=== PATIENT | female | born 1975 | race American Indian/Alaskan Native ===

== ENCOUNTER → 2016-12-23 | Outpatient (CLI) | payer BC, OTHER ==
[2016-12-23] MEDS: Gadobutrol 10 mMOL/10 ML SDV IVPUSH STA (14:42)
--- NOTE | 2016-12-24 10:02 | MR ---
EXAMINATION: MRI of the brain with and without contrast. TECHNIQUE: Multiplanar and multisequence imaging of the brain without and following the administrati on of 8 mL of Gadavist. Mild motion artifact is noted on several sequences. HISTORY: Multiple sclerosis. FINDINGS: Cerebral hemispheres and the deep nuclei are without hemorrhage, mass, edema, gliosis, enhancement o r atrophy. No extraaxial collections or hemorrhage. The ventricular system is of normal size and c onfiguration without hydrocephalus. The brainstem and cerebellum are without hemorrhage, mass, francine a, gliosis, enhancement or atrophy. No abnormal diffusion restriction. Carotid basilar artery flow voids are intact. The otomastoid airspaces are clear. No internal андрей tory canal or cerebellopontine angle masses or enhancement. The paranasal sinuses are clear. Globes, optic nerves, orbital apices, optic chiasm, optic tracts, and visual cortices are unremarka ble. The pituitary and sella turcica are unremarkable No meningeal enhancement. There is approximately 1 cm of cerebellar tonsillar herniation. No side rosis or evidence of vascular malformation. The calvarium is intact. IMPRESSION: 1. No acute intracranial findings. 2. No abnormal white matter findings to suggest multiple sclerosis. 3. 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
== END ==
LOC: MW.MRI 13:48
PROVIDERS: ATTEND Physician Assistant
DX: G35 Multiple sclerosis (principal); G93.5 Compression of brain
CPT/HCPCS: 70553; A9585

== ENCOUNTER → 2017-01-20 | Outpatient (CLI) | payer BC, OTHER ==
[2017-01-20 15:46] LABS: CHLORIDE,CL 110 mmol/L (98-110); SODIUM,NA 138 mmol/L (136-146)
== END | disposition home or self-care (01) ==
LOC: MW.CHNEURO 14:57
PROVIDERS: ATTEND Psychiatry & Neurology Neuromuscular Medicine
DX: R53.83 Other fatigue (principal); M25.50 Pain in unspecified joint; R20.0 Anesthesia of skin; R20.2 Paresthesia of skin
CPT/HCPCS: 36415; 80053; 82550; 85025

== ENCOUNTER 2018-05-18 10:54 | Inpatient (IN) | payer BC, OTHER ==
[2018-05-18] MEDS ORDERED: Ondansetron 4 MG/2 ML SDV IVPUSH ONE (10:56)
[2018-05-18] MEDS ORDERED: Sodium Chloride 0.9% 1,000 ML IV ONE ×2 (10:56→12:31)
[2018-05-18] MEDS ORDERED: Ketorolac 30 MG/ML SDV IVPUSH ONE (11:26)
--- NOTE | 2018-05-18 11:29 | EDM.PDOC ---
ED HPI GENERAL MEDICAL PROBLEM - General Chief Complaint: Abdominal Pain Stated Complaint: COLITIS Time Seen by Provider: 05/18/18 10:56 Source of Information: Reports: Patient History Limitations: Reports: No Limitations - History of Present Illness INITIAL COMMENTS - FREE TEXT/NARRATIVE: HISTORY AND PHYSICAL: History of present illness: Patient is a 42-year-old female who presents to the emergency room with complaints of low abdominal pain, mucousy bloody stools, and nausea. She has a history of colitis and over the past 3 weeks has had progressively worsening of her diarrhea which is now more "mucousy been normal". She denies any fever, chills, chest pain, shortness of breath or cough. Denies any vomiting, constipation, dysuria. Patient sees Dr. Kowalski at [facility] for her primary care provider. Sees a dance hall hostess in [place] for her colitis. Patient has had a total hysterectomy, denies chance of . Review of systems: As per history of present illness and below otherwise all systems reviewed and negative. Past medical history: As per history of present illness and as reviewed below otherwise noncontributory. Surgical history: As per history of present illness and as reviewed below otherwise noncontributory. Social history: No reported history of drug or alcohol abuse. Family history: As per history of present illness and as reviewed below otherwise noncontributory. Physical exam: General: Well-developed and well-nourished 42-year-old female. Alert and oriented. Nontoxic appearing and in no acute distress. HEENT: Atraumatic, normocephalic, pupils equal and reactive bilaterally, negative for conjunctival pallor or scleral icterus, mucous membranes moist, throat clear, neck supple, nontender, trachea midline. No drooling or trismus noted. No meningeal signs Lungs: Clear to auscultation, breath sounds equal bilaterally, chest nontender. Heart: S1S2, regular rate and rhythm without overt murmur Abdomen: Soft, nondistended, generalized tenderness to the low abdomen. Negative for masses or hepatosplenomegaly. Negative for costovertebral tenderness. Pelvis: Stable nontender. Genitourinary: Deferred. Rectal: Deferred. Skin: Intact, warm, dry. No lesions or rashes noted. Extremities: Atraumatic, negative for cords or calf pain. Neurovascular unremarkable. Neuro: Awake, alert, oriented. Cranial nerves II through XII unremarkable. Cerebellum unremarkable. Motor and sensory unremarkable throughout. Exam nonfocal. Notes: But did offer the patient some morphine for 9/10 pain. She states this does cause her to have some itching. She is willing to try Toradol first to manage her discomfort. Vital signs are stable. Lab work results are pending. Patient's pain is 5/10 at this time. I will give her some Benadryl followed by some morphine. WBC is 20.25, CT of the abdomen is pending. Vital Signs are stable. CT shows mild generalized colonic wall thickening which could represent an inflammatory versus infectious colitis. Otherwise no acute findings are demonstrated in the CT. Cultures were obtained. Patient has IV antibiotics running. Dr. Hernandez was consulted on this case at 1300. 1330: Dr Hernandez his agreed to accept this patient for admission. Patient is aware and agreeable. Vital signs remained stable Diagnostics: CBC, CMP, UA, Amylase, Lipase Therapeutics: IV fluids, Toradol, Zofran, Flagyl, Cipro Impression: Infectious Colitis Plan: Admission to [facility] for IV antibiotics per Dr Hernandez Definitive disposition and diagnosis as appropriate pending reevaluation and review of above. 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: Reports: Musculoskeletal History: Reports: None Neurological History: Reports: MS (diagnesed but on no medications, and she is stable.) Psychiatric History: Reports: None Endocrine/Metabolic History: Reports: Obesity/BMI 30+ Hematologic History: Reports: None Immunologic History: Reports: None Oncologic (Cancer) History: Reports: None Dermatologic History: Reports: None - Past Surgical History Female Surgical History: Reports: Breast Biopsy, Breast Implant, Section, Hysterectomy - History Comment History Comment: etoh "occasionally" ED ROS GENERAL - Review of Systems Review Of Systems: ROS reveals no pertinent complaints other than HPI. ED EXAM, GI/ABD - Physical Exam Exam: See Below (See) Course - Vital Signs Last Recorded V/S: Last Vital Signs Temp 97.8 F 05/18/18 12:43 Pulse 76 05/18/18 12:43 Resp 16 05/18/18 12:43 BP 103/58 L 05/18/18 12:43 Pulse Ox 99 05/18/18 12:43 - Orders/Labs/Meds Orders: Active Orders 24 hr Category Date Time Status Admission Status [Patient Status] [ADT] Stat ADT 05/18/18 13:22 Active CULTURE BLOOD [BC] Stat Lab 05/18/18 12:36 Received CULTURE BLOOD [BC] Stat Lab 05/18/18 13:08 Results UA W/MICROSCOPIC [URIN] Stat Lab 05/18/18 11:25 Ordered Sodium Chloride 0.9% [Normal Saline] 1,000 ml Med 05/18/18 12:31 Active IV .Bolus Blood Culture x2 Reflex Set [OM.PC] Stat Oth 05/18/18 12:19 Ordered Medication Orders Sodium Chloride (Normal Saline) 1,000 mls @ 125 mls/hr IV .Bolus ONE Stop: 05/18/18 20:30 Last Admin: 05/18/18 12:37 Dose: 125 mls/hr Labs: Laboratory Tests 05/18/18 05/18/18 05/18/18 Range/Units 11:25 11:31 11:31 WBC 20.25 H (4.0-11.0) K/uL RBC 4.53 (4.30-5.90) M/uL Hgb 13.9 (12.0-16.0) g/dL Hct 41.5 (36.0-46.0) % MCV 91.6 (80.0-98.0) fL MCH 30.7 (27.0-32.0) pg MCHC 33.5 (31.0-37.0) g/dL RDW Std Deviation 43.0 (28.0-62.0) fl RDW Coeff of Antonio 13 (11.0-15.0) % Plt Count 265 (150-400) K/uL MPV 9.60 (7.40-12.00) fL Neut % (Auto) 83.4 H (48.0-80.0) % Lymph % (Auto) 8.0 L (16.0-40.0) % Sequoyah % (Auto) 7.8 (0.0-15.0) % Eos % (Auto) 0.6 (0.0-7.0) % Baso % (Auto) 0.2 (0.0-1.5) % Neut # (Auto) 16.9 H (1.4-5.7) K/uL Lymph # (Auto) 1.6 (0.6-2.4) K/uL Sequoyah # (Auto) 1.6 H (0.0-0.8) K/uL Eos # (Auto) 0.1 (0.0-0.7) K/uL Baso # (Auto) 0.1 (0.0-0.1) K/uL Nucleated RBC % 0.0 /100WBC Nucleated RBCs # 0 K/uL Sodium 139 (136-145) mmol/L Potassium 4.1 (3.5-5.1) mmol/L Chloride 103 (98-107) mmol/L Carbon Dioxide 26.1 (21.0-32.0) mmol/L BUN 12 (7.0-18.0) mg/dL Creatinine 0.9 (0.6-1.0) mg/dL Est Cr Clr Drug Dosing 68.88 mL/min Estimated GFR (MDRD) > 60.0 ml/min Glucose 104 (74-106) mg/dL Calcium 9.2 (8.5-10.1) mg/dL Total Bilirubin 0.3 (0.2-1.0) mg/dL AST 21 (15-37) IU/L ALT 78 H (14-63) IU/L Alkaline Phosphatase 99 (46-116) U/L Total Protein 8.0 (6.4-8.2) g/dL Albumin 4.1 (3.4-5.0) g/dL Globulin 3.9 H (2.0-3.5) g/dL Albumin/Globulin Ratio 1.1 L (1.3-2.8) Amylase 47 (25-115) U/L Lipase 117 (73-393) U/L Urine Color YELLOW Urine Appearance CLEAR Urine pH 6.0 (5.0-8.0) Ur Specific Friedens >= 1.030 (1.001-1.035) Urine Protein NEGATIVE (NEGATIVE) mg/dL Urine Glucose (UA) NEGATIVE (NEGATIVE) mg/dL Urine Ketones NEGATIVE (NEGATIVE) mg/dL Urine Occult Blood NEGATIVE (NEGATIVE) Urine Nitrite NEGATIVE (NEGATIVE) Urine Bilirubin NEGATIVE (NEGATIVE) Urine Urobilinogen 0.2 (<2.0) EU/dL Ur Leukocyte Esterase NEGATIVE (NEGATIVE) Urine RBC 0-1 (0-2/HPF) Urine WBC 0-2 (0-5/HPF) Ur Epithelial Cells RARE (NONE-FEW) Amorphous Sediment RARE (NEGATIVE) Urine Bacteria RARE (NEGATIVE) Meds: Medications Generic Name Dose Route Start Last Admin Trade Name Freq PRN Reason Stop Dose Admin Sodium Chloride 1,000 mls @ 125 mls/hr 05/18/18 12:31 05/18/18 12:37 Normal Saline IV 05/18/18 20:30 125 mls/hr .Bolus ONE Administration Discontinued Medications Generic Name Dose Route Start Last Admin Trade Name Freq PRN Reason Stop Dose Admin Diphenhydramine HCl 25 mg 05/18/18 11:45 Benadryl IVPUSH 05/18/18 11:46 ONETIME ONE Sodium Chloride 1,000 mls @ 999 mls/hr 05/18/18 10:56 05/18/18 11:23 Normal Saline IV 05/18/18 11:56 999 mls/hr STAT ONE Administration Ciprofloxacin/Dextrose 400 mg/ 200 mls @ 200 mls/hr 05/18/18 12:20 Premix IV 05/18/18 13:19 NOW STA Metronidazole 500 mg/ Premix 100 mls @ 100 mls/hr 05/18/18 12:19 05/18/18 13: 02 IV 05/18/18 13:18 100 mls/hr ONETIME ONE Administration Iopamidol 100 ml 05/18/18 12:11 05/18/18 12:21 Isovue-370 (76%) IVPUSH 05/18/18 12:12 100 ml ONETIME STA Administration Ketorolac Tromethamine 30 mg 05/18/18 11:26 05/18/18 11:35 Toradol IVPUSH 05/18/18 11:27 30 mg ONETIME ONE Administration Morphine Sulfate 2 mg 05/18/18 11:45 Morphine IVPUSH 05/18/18 11:46 ONETIME ONE Morphine Sulfate 2 mg 05/18/18 13:10 Morphine IVPUSH 05/18/18 13:11 ONETIME ONE Ondansetron HCl 4 mg 05/18/18 10:56 05/18/18 11:23 Zofran IVPUSH 05/18/18 10:57 4 mg ONETIME ONE Administration Departure - Departure Time of Disposition: 13:30 Disposition: Admitted As Inpatient 64 Clinical Impression: Colitis - Discharge Information Referrals: PCP,None [Primary Care Provider] - Forms: ED Department Discharge - My Orders Last 24 Hours: My Active Orders 05/18/18 11:25 UA W/MICROSCOPIC [URIN] Stat 05/18/18 12:19 Blood Culture x2 Reflex Set [OM.PC] Stat 05/18/18 12:31 Sodium Chloride 0.9% [Normal Saline] 1,000 ml IV .Bolus 05/18/18 12:36 CULTURE BLOOD [BC] Stat 05/18/18 13:08 CULTURE BLOOD [BC] Stat 05/18/18 13:22 Admission Status [Patient Status] [ADT] Stat - Assessment/Plan Last 24 Hours: My Active Orders 05/18/18 11:25 UA W/MICROSCOPIC [URIN] Stat 05/18/18 12:19 Blood Culture x2 Reflex Set [OM.PC] Stat 05/18/18 12:31 Sodium Chloride 0.9% [Normal Saline] 1,000 ml IV .Bolus 05/18/18 12:36 CULTURE BLOOD [BC] Stat 05/18/18 13:08 CULTURE BLOOD [BC] Stat 05/18/18 13:22 Admission Status [Patient Status] [ADT] Stat
[2018-05-18] MEDS ORDERED: diphenhydrAMINE 50 MG/ML SDV IVPUSH ONE (11:45)
[2018-05-18 12:06] LABS: CHLORIDE,CL 103 mmol/L (98-107); SODIUM,NA 139 mmol/L (136-145)
[2018-05-18] MEDS ORDERED: Iopamidol 755 Mg/ML 100 ML Bottle IVPUSH STA (12:11)
[2018-05-18] MEDS ORDERED: metroNIDAZOLE/Normal Saline 500 MG in Premix Bag 1 BAG IV ONE (12:19)
[2018-05-18] MEDS ORDERED: Ciprofloxacin in D5W 400 MG in Premix Bag 1 BAG IV STA ×2 (12:20)
--- NOTE | 2018-05-18 12:46 | CT ---
CT of the abdomen and pelvis with contrast. HISTORY: Colitis TECHNIQUE: Axial CT images were obtained of the abdomen and pelvis following administration of 100 mL of Isovue-370 in the right arm without complication. Coronal and sagittal reconstructions obtained. FINDINGS: The lung bases are clear, no pleural effusion. The liver, spleen, adrenal glands, and pancreas appear normal. The gallbladder is normal. There is no bulky retroperitoneal lymphadenopathy or abdominal ascites. The kidneys enhance and function symmetrically without evidence of obstructive uropathy. Large and sm all bowel are normal in caliber without evidence of obstruction. There is mild generalized thickening of the colonic mucosa. No significant pericolonic inflammation or stranding. The urinary bladder is minimally filled. No bulky pelvic lymphadenopathy or free pelvic fluid. No suspicious osseous abnormalities identified. IMPRESSION: 1. Mild generalized colonic wall thickening, which could represent an inflammatory versus infectious colitis. 2. Otherwise no acute findings demonstrated within the abdomen or pelvis.
[2018-05-18] MEDS ORDERED: Morphine 2 MG/ML Syringe IVPUSH ONE (13:10)
[2018-05-18] MEDS ORDERED: Morphine 2 MG/ML Syringe ONE (13:53)
[2018-05-18] MEDS: Morphine 2 MG/ML Syringe IVPUSH ONE ×3 (13:54→14:10)
[2018-05-18] MEDS ORDERED: diphenhydrAMINE 50 MG/ML SDV ONE (13:56)
[2018-05-18] MEDS ORDERED: Acetaminophen 500 MG Tab PO PRN (14:51)
[2018-05-18] MEDS ORDERED: Sodium Chloride 0.9% 10 ML Syringe FLUSH PRN (14:53)
[2018-05-18] MEDS ORDERED: Sodium Chloride 0.9% 2.5 ML Syringe FLUSH PRN (14:53)
[2018-05-18] MEDS ORDERED: Morphine 2 MG/ML Syringe IVPUSH PRN (14:53)
[2018-05-18] MEDS ORDERED: Lactated Ringers 1,000 ML IV SCH (15:00)
[2018-05-18] MEDS: metroNIDAZOLE/Normal Saline 500 MG in Premix Bag 1 BAG IV SCH ×2 (17:46→23:46)
[2018-05-18] MEDS: methylPREDNISolone Sodium Succinate 125 MG/2 ML SDV IVPUSH SCH (17:46)
[2018-05-18] MEDS: HYDROmorphone 1 MG/ML Syringe IVPUSH PRN ×2 (18:26→23:48)
[2018-05-18] MEDS: Ciprofloxacin in D5W 400 MG in Premix Bag 1 BAG IV SCH ×2 (21:30)
--- NOTE | 2018-05-18 22:35 | PCM.HP ---
H&P History of Present Illness - General Date of Service: 05/18/18 Admit Problem/Dx: Admission Diagnosis/Problem Admission Diagnosis/Problem Colitis Source of Information: Patient - History of Present Illness Initial Comments - Free Text/Narative: Patient 42 y old female presented to hospital today to to abdominal pain that is localized diffuse in the abdomen and is associated with tenesmus and small amount of mucoid passing , occasional streaks of blood.Her symptoms started 3 weeks ago and she states that she thinks this was brought on by her eating broccoli and cauliflower , raw salad. Her stool was initially more bloody and later on it became mucoid and was associated with abdominal pain that was getting progressively worse.Denies N and vomiting or fever. Patient was seen at [facility] in [facility] on August 2017 and for similar symptoms and he had colonoscopy and she was told she has a colitis that starts with" e" but she doesn't remember the name of it , also she doesn't remember the GI doctor. In August 2017 she had colitis only for about 1 week and she says she lost about 50 lbs and she was treated with Iv antibiotics and steroids Onset of Symptoms: Reports: Today Symptom Onset Date: 04/27/18 Duration of Symptoms: Reports: Week(s): Location: Reports: Abdomen Abdomen Pain Score (Numeric/FACES): 6 - Related Data Allergies/Adverse Reactions: Allergies Allergy/AdvReac Type Severity Reaction Status Date / Time No Known Allergies Allergy Verified 10/26/16 09:09 Home Medications: Home Meds Acetaminophen 1 tab PO ASDIRECTED PRN 10/26/16 [History] Ibuprofen [Motrin] 1 tab PO ASDIRECTED PRN 10/26/16 [History] Past Medical History HEENT History: Other HEENT History: wears glasses Cardiovascular History: Reports: None Respiratory History: Reports: Other (See Below) Gastrointestinal History: Reports: None Other Gastrointestinal History: Cholitis Genitourinary History: Reports: None 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: Musculoskeletal History: Reports: None Neurological History: Reports: MS Psychiatric History: Reports: None Endocrine/Metabolic History: Reports: Obesity/BMI 30+ Hematologic History: Reports: None Immunologic History: Reports: None Oncologic (Cancer) History: Reports: None Dermatologic History: Reports: None - Infectious Disease History Infectious Disease History: Reports: Chicken Pox, Mononucleosis - Past Surgical History Head Surgeries/Procedures: Reports: None Female Surgical History: Reports: Breast Biopsy, Breast Implant, Section, Hysterectomy - History Comment History Comment: etoh "occasionally" Social & Family History - Family History Family Medical History: Noncontributory - Tobacco Use Smoking Status *Q: Former Smoker Years of Tobacco use: 20 Packs/Tins Daily: 0.5 Used Tobacco, but Quit: Yes Month/Year Tobacco Last Used: 2016 Second Hand Smoke Exposure: No - Caffeine Use Caffeine Use: Reports: Coffee - Recreational Drug Use Recreational Drug Use: No H&P Review of Systems - Review of Systems: Review Of Systems: See Below General: Reports: No Symptoms. Denies: Fever, Chills, Malaise HEENT: Reports: No Symptoms Pulmonary: Reports: No Symptoms Cardiovascular: Reports: No Symptoms Gastrointestinal: Reports: Abdominal Pain, Diarrhea, Hematochezia, Stool Incontinence. Denies: Melena, Nausea, Vomiting Genitourinary: Reports: No Symptoms Musculoskeletal: Reports: No Symptoms Skin: Reports: No Symptoms Psychiatric: Reports: No Symptoms Neurological: Reports: No Symptoms Hematologic/Lymphatic: Reports: No Symptoms Immunologic: Reports: No Symptoms Exam - Exam Exam: See Below - Vital Signs Vital Signs: Last Vital Signs Temp 100 F 05/18/18 18:53 Pulse 76 05/18/18 12:43 Resp 16 05/18/18 18:53 BP 96/48 L 05/18/18 18:53 Pulse Ox 94 L 05/18/18 18:53 Weight: 200 lb - Exam General: Alert, Oriented HEENT: Conjunctiva Clear, EACs Clear Neck: Supple, Trachea Midline Lungs: Clear to Auscultation Cardiovascular: Regular Rate, Regular Rhythm, Normal S1, Normal S2 GI/Abdominal Exam: Normal Bowel Sounds Back Exam: Normal Inspection Extremities: Normal Inspection Skin: Warm, Dry, Intact Neurological: Cranial Nerves Intact Neuro Extensive - Mental Status: Alert, Oriented x3 Psychiatric: Alert, Normal Affect - Patient Data Lab Results Last 24 hrs: Laboratory Results - last 24 hr 05/18/18 05/18/18 05/18/18 Range/Units 11:25 11:31 11:31 WBC 20.25 H (4.0-11.0) K/uL RBC 4.53 (4.30-5.90) M/uL Hgb 13.9 (12.0-16.0) g/dL Hct 41.5 (36.0-46.0) % MCV 91.6 (80.0-98.0) fL MCH 30.7 (27.0-32.0) pg MCHC 33.5 (31.0-37.0) g/dL RDW Std Deviation 43.0 (28.0-62.0) fl RDW Coeff of Antonio 13 (11.0-15.0) % Plt Count 265 (150-400) K/uL MPV 9.60 (7.40-12.00) fL Neut % (Auto) 83.4 H (48.0-80.0) % Lymph % (Auto) 8.0 L (16.0-40.0) % [place] % (Auto) 7.8 (0.0-15.0) % Eos % (Auto) 0.6 (0.0-7.0) % Baso % (Auto) 0.2 (0.0-1.5) % Neut # (Auto) 16.9 H (1.4-5.7) K/uL Lymph # (Auto) 1.6 (0.6-2.4) K/uL Macon # (Auto) 1.6 H (0.0-0.8) K/uL Eos # (Auto) 0.1 (0.0-0.7) K/uL Baso # (Auto) 0.1 (0.0-0.1) K/uL Nucleated RBC % 0.0 /100WBC Nucleated RBCs # 0 K/uL ESR (0-19) mm/hr Sodium 139 (136-145) mmol/L Potassium 4.1 (3.5-5.1) mmol/L Chloride 103 (98-107) mmol/L Carbon Dioxide 26.1 (21.0-32.0) mmol/L BUN 12 (7.0-18.0) mg/dL Creatinine 0.9 (0.6-1.0) mg/dL Est Cr Clr Drug Dosing 68.88 mL/min Estimated GFR (MDRD) > 60.0 ml/min Glucose 104 (74-106) mg/dL Calcium 9.2 (8.5-10.1) mg/dL Total Bilirubin 0.3 (0.2-1.0) mg/dL AST 21 (15-37) IU/L ALT 78 H (14-63) IU/L Alkaline Phosphatase 99 (46-116) U/L C-Reactive Protein (0.00-0.90) mg/dL Total Protein 8.0 (6.4-8.2) g/dL Albumin 4.1 (3.4-5.0) g/dL Globulin 3.9 H (2.0-3.5) g/dL Albumin/Globulin Ratio 1.1 L (1.3-2.8) Amylase 47 (25-115) U/L Lipase 117 (73-393) U/L Urine Color YELLOW Urine Appearance CLEAR Urine pH 6.0 (5.0-8.0) Ur Specific [place] >= 1.030 (1.001-1.035) Urine Protein NEGATIVE (NEGATIVE) mg/dL Urine Glucose (UA) NEGATIVE (NEGATIVE) mg/dL Urine Ketones NEGATIVE (NEGATIVE) mg/dL Urine Occult Blood NEGATIVE (NEGATIVE) Urine Nitrite NEGATIVE (NEGATIVE) Urine Bilirubin NEGATIVE (NEGATIVE) Urine Urobilinogen 0.2 (<2.0) EU/dL Ur Leukocyte Esterase NEGATIVE (NEGATIVE) Urine RBC 0-1 (0-2/HPF) Urine WBC 0-2 (0-5/HPF) Ur Epithelial Cells RARE (NONE-FEW) Amorphous Sediment RARE (NEGATIVE) Urine Bacteria RARE (NEGATIVE) 05/18/18 05/18/18 Range/Units 11:31 11:31 WBC (4.0-11.0) K/uL RBC (4.30-5.90) M/uL Hgb (12.0-16.0) g/dL Hct (36.0-46.0) % MCV (80.0-98.0) fL MCH (27.0-32.0) pg MCHC (31.0-37.0) g/dL RDW Std Deviation (28.0-62.0) fl RDW Coeff of Antonio (11.0-15.0) % Plt Count (150-400) K/uL MPV (7.40-12.00) fL Neut % (Auto) (48.0-80.0) % Lymph % (Auto) (16.0-40.0) % Macon % (Auto) (0.0-15.0) % Eos % (Auto) (0.0-7.0) % Baso % (Auto) (0.0-1.5) % Neut # (Auto) (1.4-5.7) K/uL Lymph # (Auto) (0.6-2.4) K/uL Macon # (Auto) (0.0-0.8) K/uL Eos # (Auto) (0.0-0.7) K/uL Baso # (Auto) (0.0-0.1) K/uL Nucleated RBC % /100WBC Nucleated RBCs # K/uL ESR 23 H (0-19) mm/hr Sodium (136-145) mmol/L Potassium (3.5-5.1) mmol/L Chloride (98-107) mmol/L Carbon Dioxide (21.0-32.0) mmol/L BUN (7.0-18.0) mg/dL Creatinine (0.6-1.0) mg/dL Est Cr Clr Drug Dosing mL/min Estimated GFR (MDRD) ml/min Glucose (74-106) mg/dL Calcium (8.5-10.1) mg/dL Total Bilirubin (0.2-1.0) mg/dL AST (15-37) IU/L ALT (14-63) IU/L Alkaline Phosphatase (46-116) U/L C-Reactive Protein 2.90 H (0.00-0.90) mg/dL Total Protein (6.4-8.2) g/dL Albumin (3.4-5.0) g/dL Globulin (2.0-3.5) g/dL Albumin/Globulin Ratio (1.3-2.8) Amylase (25-115) U/L Lipase (73-393) U/L Urine Color Urine Appearance Urine pH (5.0-8.0) Ur Specific Winton (1.001-1.035) Urine Protein (NEGATIVE) mg/dL Urine Glucose (UA) (NEGATIVE) mg/dL Urine Ketones (NEGATIVE) mg/dL Urine Occult Blood (NEGATIVE) Urine Nitrite (NEGATIVE) Urine Bilirubin (NEGATIVE) Urine Urobilinogen (<2.0) EU/dL Ur Leukocyte Esterase (NEGATIVE) Urine RBC (0-2/HPF) Urine WBC (0-5/HPF) Ur Epithelial Cells (NONE-FEW) Amorphous Sediment (NEGATIVE) Urine Bacteria (NEGATIVE) Result Diagrams: 05/18/18 11:31 05/18/18 11:31 Trent Results Last 24 hrs: Microbiology 05/18/18 16:29 Clostridium difficile Toxin A & B - Final Stool / Feces Negative for C.Diff Toxin/AG 05/18/18 16:29 Campylobacter Antigen Assay - Final Stool / Feces NEGATIVE CAMPYLOBACTER AG 05/18/18 16:29 Stool for WBCs - Final Stool / Feces POSITIVE FOR WBC'S 05/18/18 13:08 Anaerobic Blood Culture - Final Blood - Venous Problem List Initiated/Reviewed/Updated: Yes Orders Last 24hrs: Active Orders 24 hr Category Date Time Status Admission Status [Patient Status] [ADT] Stat ADT 05/18/18 13:22 Active Communication Order [RC] ROUTINE Care 05/18/18 18:05 Active Oxygen Therapy [RC] PRN Care 05/18/18 14:53 Active Pulse Oximetry [RC] PRN Care 05/18/18 14:53 Active Vital Signs [RC] Q4H Care 05/18/18 14:53 Active CBC W/O DIFF,HEMOGRAM [HEME] AM Lab 05/19/18 05:11 Ordered CBC W/O DIFF,HEMOGRAM [HEME] AM Lab 05/20/18 05:11 Ordered CBC W/O DIFF,HEMOGRAM [HEME] AM Lab 05/21/18 05:11 Ordered CBC W/O DIFF,HEMOGRAM [HEME] AM Lab 05/22/18 05:11 Ordered CBC W/O DIFF,HEMOGRAM [HEME] AM Lab 05/23/18 05:11 Ordered CMP [COMPREHENSIVE METABOLIC PN,CMP] [CHEM] AM Lab 05/19/18 05:11 Ordered CMP [COMPREHENSIVE METABOLIC PN,CMP] [CHEM] AM Lab 05/20/18 05:11 Ordered CMP [COMPREHENSIVE METABOLIC PN,CMP] [CHEM] AM Lab 05/21/18 05:11 Ordered CMP [COMPREHENSIVE METABOLIC PN,CMP] [CHEM] AM Lab 05/22/18 05:11 Ordered CMP [COMPREHENSIVE METABOLIC PN,CMP] [CHEM] AM Lab 05/23/18 05:11 Ordered CULTURE BLOOD [BC] Stat Lab 05/18/18 12:36 Received CULTURE BLOOD [BC] Stat Lab 05/18/18 13:08 Results CULTURE STOOL + CAMPY+SHIGATOX [RM] Routine Lab 05/18/18 16:29 Ordered UA W/MICROSCOPIC [URIN] Stat Lab 05/18/18 11:25 Ordered Acetaminophen [Tylenol Extra Strength] Med 05/18/18 14:51 Active 500 mg PO ASDIRECTED PRN Ciprofloxacin in D5W [Cipro in D5W 400 MG/200 ML] 400 Med 05/18/18 21:00 Active mg Premix Bag 1 bag IV Q12H Dextrose 5%-0.9% NaCl [Dextrose 5%-Normal Saline] 1,000 Med 05/18/18 18:00 Active ml IV ASDIRECTED HYDROmorphone [Dilaudid] Med 05/18/18 17:57 Active 1 mg IVPUSH Q3H PRN Sodium Chloride 0.9% [Saline Flush] Med 05/18/18 14:53 Active 10 ml FLUSH ASDIRECTED PRN Sodium Chloride 0.9% [Saline Flush] Med 05/18/18 14:53 Active 2.5 ml FLUSH ASDIRECTED PRN methylPREDNISolone Sod Succ [Solu-MEDROL] Med 05/18/18 17:00 Active 60 mg IVPUSH DAILY metroNIDAZOLE/Normal Saline [Flagyl 500 MG in NS 100 ML Med 05/18/18 18:00 Active ] 500 mg Premix Bag 1 bag IV QID Blood Culture x2 Reflex Set [OM.PC] Stat Oth 05/18/18 12:19 Ordered Peripheral IV Insertion Adult [OM.PC] Routine Oth 05/18/18 14:53 Ordered Sequential Compression Device [OM.PC] Per Unit Routine Oth 05/18/18 14:54 Ordered Resuscitation Status Routine Resus Stat 05/18/18 14:53 Ordered Medication Orders Acetaminophen (Tylenol Extra Strength) 500 mg PO ASDIRECTED PRN PRN Reason: Pain Hydromorphone HCl (Dilaudid) 1 mg IVPUSH Q3H PRN PRN Reason: Pain Last Admin: 05/18/18 18:26 Dose: 1 mg Metronidazole 500 mg/ Premix 100 mls @ 100 mls/hr IV QID MARIA EUGENIA Last Admin: 05/18/18 17:46 Dose: 100 mls/hr Ciprofloxacin/Dextrose 400 mg/ (Premix) 200 mls @ 200 mls/hr IV Q12H [facility] Last Admin: 05/18/18 21:30 Dose: 200 mls/hr Dextrose/Sodium Chloride (Dextrose 5%-Normal Saline) 1,000 mls @ 150 mls/hr IV ASDIRECTED MARIA EUGENIA Methylprednisolone Sodium Succinate (Solu-Medrol) 60 mg IVPUSH DAILY [facility] Last Admin: 05/18/18 17:46 Dose: 60 mg Sodium Chloride (Saline Flush) 10 ml FLUSH ASDIRECTED PRN PRN Reason: Keep Vein Open Sodium Chloride (Saline Flush) 2.5 ml FLUSH ASDIRECTED PRN PRN Reason: Keep Vein Open Ct abdomen : pancolitis Colitis - will admit patient to medical surgery , will request medical records from [place] ,where patient was hospitalized in August 2017 and will start patient on solumedrol 60 mg iv daily , metronidazole 500 mg iv qid and ciprofloxacin 400 mg iv q 12h for pain management will give patient dilaudid 1 mg iv q 3 h prn for pain will do stool culture , stool for c diff and stool for WBC
[2018-05-19] MEDS: Dextrose 5%-0.9% NaCl 1,000 ML IV SCH ×3 (02:00→17:57)
[2018-05-19] MEDS: metroNIDAZOLE/Normal Saline 500 MG in Premix Bag 1 BAG IV SCH ×3 (05:24→17:48)
[2018-05-19] MEDS: HYDROmorphone 1 MG/ML Syringe IVPUSH PRN ×2 (06:21→13:14)
[2018-05-19 06:34] LABS: CHLORIDE,CL 106 mmol/L (98-107); SODIUM,NA 138 mmol/L (136-145)
[2018-05-19] MEDS: methylPREDNISolone Sodium Succinate 125 MG/2 ML SDV IVPUSH SCH (08:01)
[2018-05-19] MEDS: Ciprofloxacin in D5W 400 MG in Premix Bag 1 BAG IV SCH ×4 (08:03→20:29)
--- NOTE | 2018-05-19 14:24 | PCM.CONS ---
H&P History of Present Illness - General Date of Service: 05/19/18 Admit Problem/Dx: Admission Diagnosis/Problem Admission Diagnosis/Problem Colitis Source of Information: Patient History Limitations: Reports: No Limitations - History of Present Illness Initial Comments - Free Text/Narative: Patient is a 42 year old female who presented to the ER yesterday with mucousy stools and abdominal pain. She had been experiencing intermittent bloody stools and diarrhea on and off for three weeks. She has a history of "ischemic colitis. " She was told this was due to small blood clots. She believes that she saw a ripening room attendant and was placed on baby aspirin daily. She had a colonoscopy with a GI physician there. She did not follow up with the GI physician. She denies any unusual diet changes or recent travel. She had stool cultures performed that showed WBC in the stool but was otherwise negative. CT of the abdomen pelvis showed mild colonic wall thickening. Her WBC was 20k on admission. She was given IVF, antibiotics, and kept npo. her WBC is 17k today. Vitals are stable and abdominal pain is improved significantly. Abdomen Pain Score (Numeric/FACES): 4 - Related Data Allergies/Adverse Reactions: Allergies Allergy/AdvReac Type Severity Reaction Status Date / Time No Known Allergies Allergy Verified 10/26/16 09:09 Home Medications: Home Meds Acetaminophen 1 tab PO ASDIRECTED PRN 10/26/16 [History] Ibuprofen [Motrin] 1 tab PO ASDIRECTED PRN 10/26/16 [History] Past Medical History HEENT History: Other HEENT History: wears glasses Cardiovascular History: Reports: None Respiratory History: Reports: Other (See Below) Gastrointestinal History: Reports: None Other Gastrointestinal History: Cholitis Genitourinary History: Reports: None 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: Musculoskeletal History: Reports: None Neurological History: Reports: MS Psychiatric History: Reports: None Endocrine/Metabolic History: Reports: Obesity/BMI 30+ Hematologic History: Reports: None Immunologic History: Reports: None Oncologic (Cancer) History: Reports: None Dermatologic History: Reports: None - Infectious Disease History Infectious Disease History: Reports: Chicken Pox, Mononucleosis - Past Surgical History Head Surgeries/Procedures: Reports: None Female Surgical History: Reports: Breast Biopsy, Breast Implant, Section, D&C, Hysterectomy - History Comment History Comment: etoh "occasionally" Social & Family History - Family History Family Medical History: Noncontributory - Tobacco Use Smoking Status *Q: Former Smoker Years of Tobacco use: 20 Packs/Tins Daily: 0.5 Used Tobacco, but Quit: Yes Month/Year Tobacco Last Used: 2016 Second Hand Smoke Exposure: No - Caffeine Use Caffeine Use: Reports: Coffee - Recreational Drug Use Recreational Drug Use: No H&P Review of Systems - Review of Systems: Review Of Systems: ROS reveals no pertinent complaints other than HPI. Exam - Exam Exam: See Below - Vital Signs Vital Signs: Last Vital Signs Temp 35.4 C 05/19/18 11:00 Pulse 70 05/19/18 11:00 Resp 16 05/19/18 11:00 BP 101/56 L 05/19/18 11:00 Pulse Ox 93 L 05/19/18 11:00 Weight: 90.718 kg - Exam General: Alert, Oriented, Cooperative HEENT: Conjunctiva Clear Neck: Supple, Trachea Midline Lungs: Normal Respiratory Effort Cardiovascular: Regular Rate GI/Abdominal Exam: Soft, Non-Tender, No Distention, No Mass - Patient Data Lab Results Last 24 hrs: Laboratory Results - last 24 hr 05/18/18 05/18/18 05/19/18 Range/Units 11:31 11:31 05:48 WBC 17.94 H (4.0-11.0) K/uL RBC 4.12 L (4.30-5.90) M/uL Hgb 12.3 (12.0-16.0) g/dL Hct 38.1 (36.0-46.0) % MCV 92.5 (80.0-98.0) fL MCH 29.9 (27.0-32.0) pg MCHC 32.3 (31.0-37.0) g/dL RDW Std Deviation 43.2 (28.0-62.0) fl RDW Coeff of Antonio 13 (11.0-15.0) % Plt Count 218 (150-400) K/uL MPV 9.50 (7.40-12.00) fL Nucleated RBC % 0.0 /100WBC Nucleated RBCs # 0 K/uL ESR 23 H (0-19) mm/hr Sodium (136-145) mmol/L Potassium (3.5-5.1) mmol/L Chloride (98-107) mmol/L Carbon Dioxide (21.0-32.0) mmol/L BUN (7.0-18.0) mg/dL Creatinine (0.6-1.0) mg/dL Est Cr Clr Drug Dosing mL/min Estimated GFR (MDRD) ml/min Glucose (74-106) mg/dL Calcium (8.5-10.1) mg/dL Total Bilirubin (0.2-1.0) mg/dL AST (15-37) IU/L ALT (14-63) IU/L Alkaline Phosphatase (46-116) U/L C-Reactive Protein 2.90 H (0.00-0.90) mg/dL Total Protein (6.4-8.2) g/dL Albumin (3.4-5.0) g/dL Globulin (2.0-3.5) g/dL Albumin/Globulin Ratio (1.3-2.8) 05/19/18 Range/Units 05:48 WBC (4.0-11.0) K/uL RBC (4.30-5.90) M/uL Hgb (12.0-16.0) g/dL Hct (36.0-46.0) % MCV (80.0-98.0) fL MCH (27.0-32.0) pg MCHC (31.0-37.0) g/dL RDW Std Deviation (28.0-62.0) fl RDW Coeff of Antonio (11.0-15.0) % Plt Count (150-400) K/uL MPV (7.40-12.00) fL Nucleated RBC % /100WBC Nucleated RBCs # K/uL ESR (0-19) mm/hr Sodium 138 (136-145) mmol/L Potassium 4.3 (3.5-5.1) mmol/L Chloride 106 (98-107) mmol/L Carbon Dioxide 22.5 (21.0-32.0) mmol/L BUN 9 (7.0-18.0) mg/dL Creatinine 0.8 (0.6-1.0) mg/dL Est Cr Clr Drug Dosing 77.49 mL/min Estimated GFR (MDRD) > 60.0 ml/min Glucose 161 H (74-106) mg/dL Calcium 8.3 L (8.5-10.1) mg/dL Total Bilirubin 0.2 (0.2-1.0) mg/dL AST 15 (15-37) IU/L ALT 57 (14-63) IU/L Alkaline Phosphatase 81 (46-116) U/L C-Reactive Protein (0.00-0.90) mg/dL Total Protein 6.9 (6.4-8.2) g/dL Albumin 3.3 L (3.4-5.0) g/dL Globulin 3.6 H (2.0-3.5) g/dL Albumin/Globulin Ratio 0.9 L (1.3-2.8) Result Diagrams: 05/19/18 05:48 05/19/18 05:48 Trent Results Last 24 hrs: Microbiology 05/18/18 13:08 Aerobic Blood Culture - Preliminary Blood - Venous NO GROWTH AFTER 1 DAY Anaerobic Blood Culture - Final 05/18/18 12:36 Aerobic Blood Culture - Preliminary Blood - Venous - Lab Draw NO GROWTH AFTER 1 DAY Anaerobic Blood Culture - Preliminary NO GROWTH AFTER 1 DAY 05/18/18 16:29 Campylobacter Antigen Assay - Final Stool / Feces NEGATIVE CAMPYLOBACTER AG - Final NEGATIVE FOR SHIGA TOXIN 1 - Final NEGATIVE FOR SHIGA TOXIN 2 05/18/18 16:29 Clostridium difficile Toxin A & B - Final Stool / Feces Negative for C.Diff Toxin/AG 05/18/18 16:29 Stool for WBCs - Final Stool / Feces POSITIVE FOR WBC'S Consult PN Assessment/Plan Procedures: Procedures ASSAY OF CK (CPK) (01/20/17) CARPAL TUNNEL SURGERY (11/17/16) COMPLETE CBC W/AUTO DIFF WBC (01/20/17) COMPREHEN METABOLIC PANEL (01/20/17) DRAIN/INJ JOINT/BURSA W/O US (11/17/16) MRI BRAIN STEM W/O & W/DYE (12/23/16) ROUTINE VENIPUNCTURE (01/20/17) X-RAY EXAM OF ELBOW (05/31/17) (1) Colitis SNOMED Code(s): 17101855 Code(s): K52.9 - NONINFECTIVE GASTROENTERITIS AND COLITIS, UNSPECIFIED Current Visit: Yes Problem List Initiated/Reviewed/Updated: Yes Plan: Continue IVF, antibiotics, and npo for today. Patient is improving. If tomorrow her pain is gone and her WBC is down even more can advance diet as tolerated and transition to oral antibiotics. If patient worsens I would transfer her to [place] for further workup since this is where she had her previous workup. She can follow up with them upon discharge. She already has an appointment scheduled there for next week.
[2018-05-19] MEDS: Ondansetron 4 MG/2 ML SDV IVPUSH PRN (14:39)
[2018-05-19] MEDS: Pantoprazole 40 MG Vial IVPUSH SCH (17:45)
[2018-05-19] MEDS ORDERED: Metoclopramide 10 MG/2 ML SDV IVPUSH PRN (17:45)
--- NOTE | 2018-05-19 18:04 | PCM.PN ---
- General Info Date of Service: 05/19/18 Admission Dx/Problem (Free Text): Admission Diagnosis/Problem Admission Diagnosis/Problem Colitis Subjective Update: Patient states that abdominal pain and 6/10 in intensity and yesterday was 9 and 10 in intensity. She reports improvement of her symptoms and she had adverse reaction to Dilaudid , she vomited and felt dizzy after she received Dilaudid intravenous. She has itching with morphine. Dilaudid was discontinued and patient was switched to [place] by mouth. I have called patient canine enforcement officer in [facility] and he recommended to continue with IV antibiotics for ischemic colitis. She had ischemic colitis in July 2017, and as per her canine enforcement officer she is having ischemic colitis now , too. He recommends patient to follow-up with him , May 31, and also with hematology to have hypercoagulability state workup - Review of Systems General: Reports: No Symptoms HEENT: Reports: No Symptoms Pulmonary: Reports: No Symptoms Cardiovascular: Reports: No Symptoms Gastrointestinal: Reports: Abdominal Pain, Nausea, Vomiting Genitourinary: Reports: No Symptoms Musculoskeletal: Reports: No Symptoms Skin: Reports: No Symptoms Neurological: Reports: No Symptoms Psychiatric: Reports: No Symptoms - Patient Data Vitals - Most Recent: Last Vital Signs Temp 95.7 F 05/19/18 11:00 Pulse 70 05/19/18 11:00 Resp 16 05/19/18 11:00 BP 101/56 L 05/19/18 11:00 Pulse Ox 93 L 05/19/18 11:00 Weight - Most Recent: 200 lb I&O - Last 24 Hours: Intake & Output 05/19/18 05/19/18 05/19/18 06:59 14:59 22:59 Intake Total 1350 0 Output Total 650 1050 Balance 700 -1050 Lab Results Last 24 Hours: Laboratory Results - last 24 hr 05/19/18 05/19/18 Range/Units 05:48 05:48 WBC 17.94 H (4.0-11.0) K/uL RBC 4.12 L (4.30-5.90) M/uL Hgb 12.3 (12.0-16.0) g/dL Hct 38.1 (36.0-46.0) % MCV 92.5 (80.0-98.0) fL MCH 29.9 (27.0-32.0) pg MCHC 32.3 (31.0-37.0) g/dL RDW Std Deviation 43.2 (28.0-62.0) fl RDW Coeff of Antonio 13 (11.0-15.0) % Plt Count 218 (150-400) K/uL MPV 9.50 (7.40-12.00) fL Nucleated RBC % 0.0 /100WBC Nucleated RBCs # 0 K/uL Sodium 138 (136-145) mmol/L Potassium 4.3 (3.5-5.1) mmol/L Chloride 106 (98-107) mmol/L Carbon Dioxide 22.5 (21.0-32.0) mmol/L BUN 9 (7.0-18.0) mg/dL Creatinine 0.8 (0.6-1.0) mg/dL Est Cr Clr Drug Dosing 77.49 mL/min Estimated GFR (MDRD) > 60.0 ml/min Glucose 161 H (74-106) mg/dL Calcium 8.3 L (8.5-10.1) mg/dL Total Bilirubin 0.2 (0.2-1.0) mg/dL AST 15 (15-37) IU/L ALT 57 (14-63) IU/L Alkaline Phosphatase 81 (46-116) U/L Total Protein 6.9 (6.4-8.2) g/dL Albumin 3.3 L (3.4-5.0) g/dL Globulin 3.6 H (2.0-3.5) g/dL Albumin/Globulin Ratio 0.9 L (1.3-2.8) Trent Results Last 24 Hours: Microbiology 05/18/18 13:08 Aerobic Blood Culture - Preliminary Blood - Venous NO GROWTH AFTER 1 DAY Anaerobic Blood Culture - Final 05/18/18 12:36 Aerobic Blood Culture - Preliminary Blood - Venous - Lab Draw NO GROWTH AFTER 1 DAY Anaerobic Blood Culture - Preliminary NO GROWTH AFTER 1 DAY 05/18/18 16:29 Campylobacter Antigen Assay - Final Stool / Feces NEGATIVE CAMPYLOBACTER AG - Final NEGATIVE FOR SHIGA TOXIN 1 - Final NEGATIVE FOR SHIGA TOXIN 2 05/18/18 16:29 Clostridium difficile Toxin A & B - Final Stool / Feces Negative for C.Diff Toxin/AG 05/18/18 16:29 Stool for WBCs - Final Stool / Feces POSITIVE FOR WBC'S Med Orders - Current: Current Medications Acetaminophen (Tylenol Extra Strength) 500 mg PO ASDIRECTED PRN PRN Reason: Pain Hydrocodone Bitart/Acetaminophen ([place] 325-7.5 Mg) 1 tab PO Q4H PRN PRN Reason: Pain Metronidazole 500 mg/ Premix 100 mls @ 100 mls/hr IV QID [facility] Last Admin: 05/19/18 17:48 Dose: 100 mls/hr Ciprofloxacin/Dextrose 400 mg/ (Premix) 200 mls @ 200 mls/hr IV Q12H [facility] Last Admin: 05/19/18 08:03 Dose: 200 mls/hr Dextrose/Sodium Chloride (Dextrose 5%-Normal Saline) 1,000 mls @ 150 mls/hr IV ASDIRECTED [facility] Last Admin: 05/19/18 17:57 Dose: 150 mls/hr Methylprednisolone Sodium Succinate (Solu-Medrol) 60 mg IVPUSH DAILY [facility] Last Admin: 05/19/18 08:01 Dose: 60 mg Metoclopramide HCl (Reglan) 10 mg IVPUSH Q6H PRN PRN Reason: nausea and vomiting Last Admin: 05/19/18 17:52 Dose: 10 mg Ondansetron HCl (Zofran) 4 mg IVPUSH Q4H PRN PRN Reason: Nausea Last Admin: 05/19/18 14:39 Dose: 4 mg Pantoprazole Sodium (Protonix Iv) 40 mg IVPUSH Q24H [facility] Last Admin: 05/19/18 17:45 Dose: 40 mg Sodium Chloride (Saline Flush) 10 ml FLUSH ASDIRECTED PRN PRN Reason: Keep Vein Open Sodium Chloride (Saline Flush) 2.5 ml FLUSH ASDIRECTED PRN PRN Reason: Keep Vein Open Discontinued Medications Diphenhydramine HCl (Benadryl) 25 mg IVPUSH ONETIME ONE Stop: 05/18/18 11:46 Last Admin: 05/18/18 13:56 Dose: 25 mg Diphenhydramine HCl (Benadryl) Confirm Administered Dose 50 mg .ROUTE .STK-MED ONE Stop: 05/18/18 13:57 Last Admin: 05/18/18 14:03 Dose: Not Given Hydromorphone HCl (Dilaudid) 1 mg IVPUSH Q3H PRN PRN Reason: Pain Last Admin: 05/19/18 13:14 Dose: 1 mg Sodium Chloride (Normal Saline) 1,000 mls @ 999 mls/hr IV STAT ONE Stop: 05/18/18 11:56 Last Admin: 05/18/18 11:23 Dose: 999 mls/hr Ciprofloxacin/Dextrose 400 mg/ (Premix) 200 mls @ 200 mls/hr IV NOW STA Stop: 05/18/18 13:19 Last Admin: 05/18/18 14:15 Dose: 200 mls/hr Metronidazole 500 mg/ Premix 100 mls @ 100 mls/hr IV ONETIME ONE Stop: 05/18/18 13:18 Last Admin: 05/18/18 13:02 Dose: 100 mls/hr Sodium Chloride (Normal Saline) 1,000 mls @ 125 mls/hr IV .Bolus ONE Stop: 05/18/18 20:30 Last Admin: 05/18/18 12:37 Dose: 125 mls/hr Lactated Ringer's (Ringers, Lactated) 1,000 mls @ 125 mls/hr IV ASDIRECTED [facility] Last Admin: 05/18/18 16:19 Dose: 125 mls/hr Iopamidol (Isovue-370 (76%)) 100 ml IVPUSH ONETIME STA Stop: 05/18/18 12:12 Last Admin: 05/18/18 12:21 Dose: 100 ml Ketorolac Tromethamine (Toradol) 30 mg IVPUSH ONETIME ONE Stop: 05/18/18 11:27 Last Admin: 05/18/18 11:35 Dose: 30 mg Morphine Sulfate (Morphine) 2 mg IVPUSH ONETIME ONE Stop: 05/18/18 11:46 Last Admin: 05/18/18 14:10 Dose: 1 mg Morphine Sulfate (Morphine) 2 mg IVPUSH ONETIME ONE Stop: 05/18/18 13:11 Last Admin: 05/18/18 14:04 Dose: Not Given Morphine Sulfate (Morphine) Confirm Administered Dose 2 mg .ROUTE .STK-MED ONE Stop: 05/18/18 13:54 Last Admin: 05/18/18 14:04 Dose: Not Given Morphine Sulfate (Morphine) 2 mg IVPUSH Q2H PRN PRN Reason: Pain (severe 7-10) Stop: 05/19/18 14:55 Last Admin: 05/18/18 16:34 Dose: 2 mg Ondansetron HCl (Zofran) 4 mg IVPUSH ONETIME ONE Stop: 05/18/18 10:57 Last Admin: 05/18/18 11:23 Dose: 4 mg - Exam General: Alert, Oriented HEENT: Pupils Equal, Pupils Reactive Neck: Supple, Trachea Midline, No JVD, No Thyromegaly Lungs: Clear to Auscultation, Normal Respiratory Effort Cardiovascular: Regular Rate, Regular Rhythm GI/Abdominal Exam: Normal Bowel Sounds, Soft, No Distention, Tender (mild) Extremities: Normal Inspection Skin: Warm, Dry Neurological: No New Focal Deficit Psy/Mental Status: Alert, Normal Affect - Problem List & Annotations (1) Colitis, ischemic SNOMED Code(s): 39922969 Code(s): K55.9 - VASCULAR DISORDER OF INTESTINE, UNSPECIFIED Status: Acute Current Visit: Yes - Problem List Review Problem List Initiated/Reviewed/Updated: Yes - My Orders Last 24 Hours: My Active Orders 05/18/18 18:00 Dextrose 5%-0.9% NaCl [Dextrose 5%-Normal Saline] 1,000 ml IV ASDIRECTED metroNIDAZOLE/Normal Saline [Flagyl 500 MG in NS 100 ML] 500 mg Premix Bag 1 bag IV QID 05/18/18 18:05 Communication Order [RC] ROUTINE 05/18/18 21:00 Ciprofloxacin in D5W [Cipro in D5W 400 MG/200 ML] 400 mg Premix Bag 1 bag IV Q12H 05/19/18 13:52 Acetaminophen/HYDROcodone [[place] 325-7.5 MG] 1 tab PO Q4H PRN 05/19/18 13:59 Consult to Physician [CONS] Routine 05/19/18 14:00 Notify Provider Consults [RC] ASDIRECTED 05/19/18 14:19 Ondansetron [Zofran] 4 mg IVPUSH Q4H PRN 05/19/18 17:00 Pantoprazole [ProTONIX IV] 40 mg IVPUSH Q24H 05/19/18 17:45 Metoclopramide [Reglan] 10 mg IVPUSH Q6H PRN 05/19/18 Breakfast NPO Now [Nothing per Oral Now Diet] [DIET] 05/20/18 05:11 CBC W/O DIFF,HEMOGRAM [HEME] AM CMP [COMPREHENSIVE METABOLIC PN,CMP] [CHEM] AM 05/21/18 05:11 CBC W/O DIFF,HEMOGRAM [HEME] AM CMP [COMPREHENSIVE METABOLIC PN,CMP] [CHEM] AM 05/22/18 05:11 CBC W/O DIFF,HEMOGRAM [HEME] AM CMP [COMPREHENSIVE METABOLIC PN,CMP] [CHEM] AM 05/23/18 05:11 CBC W/O DIFF,HEMOGRAM [HEME] AM CMP [COMPREHENSIVE METABOLIC PN,CMP] [CHEM] AM - Plan Plan:: will continue with Ciprofloxacin 400 mg iv q 12 h and metronidazole 500 mg iv QID , f/up stool culture Will start diet tomorrow and advanced as tolerated . Surgery consult noted. F/ up recommendations. As per Gi , recommended to d/c solumedrol . continue NPO now until tomorrow. Hypercoagulable state work up as outpatient Will order lipid panel tomorrow am dvt prof - scd
[2018-05-19] MEDS: Acetaminophen/HYDROcodone 325-7.5 MG Tab PO PRN (20:56)
[2018-05-20] MEDS: metroNIDAZOLE/Normal Saline 500 MG in Premix Bag 1 BAG IV SCH ×5 (00:04→23:54)
[2018-05-20] MEDS: Acetaminophen/HYDROcodone 325-7.5 MG Tab PO PRN ×5 (01:04→18:09)
[2018-05-20] MEDS: Dextrose 5%-0.9% NaCl 1,000 ML IV SCH ×3 (03:31→22:41)
[2018-05-20 06:05] LABS: CHLORIDE,CL 110 mmol/L (98-107); SODIUM,NA 143 mmol/L (136-145)
--- NOTE | 2018-05-20 08:46 | PCM.CONSN ---
- General Info Date of Service: 05/20/18 Subjective Update: Abdominal pain improving. Passed flatus last night. Vitals stable. No nausea or vomiting. - Review of Systems General: Reports: No Symptoms Gastrointestinal: Reports: No Symptoms - Patient Data Vitals - Most Recent: Last Vital Signs Temp 35.8 C 05/20/18 04:00 Pulse 68 05/20/18 04:00 Resp 16 05/20/18 04:00 BP 98/62 05/20/18 04:00 Pulse Ox 93 L 05/20/18 04:00 Weight - Most Recent: 90.718 kg I&O - Last 24 Hours: Intake & Output 05/19/18 05/20/18 05/20/18 22:59 06:59 14:59 Intake Total 200 1124 Output Total 1050 600 Balance -850 524 Lab Results Last 24 Hours: Laboratory Results - last 24 hr 05/20/18 05/20/18 Range/Units 05:30 05:30 WBC 16.32 H (4.0-11.0) K/uL RBC 3.64 L (4.30-5.90) M/uL Hgb 11.0 L (12.0-16.0) g/dL Hct 33.8 L (36.0-46.0) % MCV 92.9 (80.0-98.0) fL MCH 30.2 (27.0-32.0) pg MCHC 32.5 (31.0-37.0) g/dL RDW Std Deviation 43.5 (28.0-62.0) fl RDW Coeff of Antonio 13 (11.0-15.0) % Plt Count 176 (150-400) K/uL MPV 9.50 (7.40-12.00) fL Nucleated RBC % 0.0 /100WBC Nucleated RBCs # 0 K/uL Sodium 143 (136-145) mmol/L Potassium 3.5 (3.5-5.1) mmol/L Chloride 110 H (98-107) mmol/L Carbon Dioxide 26.9 (21.0-32.0) mmol/L BUN 9 (7.0-18.0) mg/dL Creatinine 0.9 (0.6-1.0) mg/dL Est Cr Clr Drug Dosing 68.88 mL/min Estimated GFR (MDRD) > 60.0 ml/min Glucose 124 H (74-106) mg/dL Calcium 7.8 L (8.5-10.1) mg/dL Total Bilirubin 0.2 (0.2-1.0) mg/dL AST 9 L (15-37) IU/L ALT 43 (14-63) IU/L Alkaline Phosphatase 65 (46-116) U/L Total Protein 5.6 L (6.4-8.2) g/dL Albumin 2.9 L (3.4-5.0) g/dL Globulin 2.7 (2.0-3.5) g/dL Albumin/Globulin Ratio 1.1 L (1.3-2.8) Trent Results Last 24 Hours: Microbiology 05/18/18 13:08 Aerobic Blood Culture - Preliminary Blood - Venous NO GROWTH AFTER 1 DAY Anaerobic Blood Culture - Final 05/18/18 12:36 Aerobic Blood Culture - Preliminary Blood - Venous - Lab Draw NO GROWTH AFTER 1 DAY Anaerobic Blood Culture - Preliminary NO GROWTH AFTER 1 DAY 05/18/18 16:29 Campylobacter Antigen Assay - Final Stool / Feces NEGATIVE CAMPYLOBACTER AG - Final NEGATIVE FOR SHIGA TOXIN 1 - Final NEGATIVE FOR SHIGA TOXIN 2 Med Orders - Current: Current Medications Acetaminophen (Tylenol Extra Strength) 500 mg PO ASDIRECTED PRN PRN Reason: Pain Hydrocodone Bitart/Acetaminophen ([place] 325-7.5 Mg) 1 tab PO Q4H PRN PRN Reason: Pain Last Admin: 05/20/18 06:01 Dose: 1 tab Metronidazole 500 mg/ Premix 100 mls @ 100 mls/hr IV QID [facility] Last Admin: 05/20/18 05:57 Dose: 100 mls/hr Ciprofloxacin/Dextrose 400 mg/ (Premix) 200 mls @ 200 mls/hr IV Q12H [facility] Last Admin: 05/19/18 20:29 Dose: 200 mls/hr Dextrose/Sodium Chloride (Dextrose 5%-Normal Saline) 1,000 mls @ 150 mls/hr IV ASDIRECTED [facility] Last Admin: 05/20/18 03:31 Dose: 150 mls/hr Metoclopramide HCl (Reglan) 10 mg IVPUSH Q6H PRN PRN Reason: nausea and vomiting Last Admin: 05/19/18 17:52 Dose: 10 mg Ondansetron HCl (Zofran) 4 mg IVPUSH Q4H PRN PRN Reason: Nausea Last Admin: 05/19/18 14:39 Dose: 4 mg Pantoprazole Sodium (Protonix Iv) 40 mg IVPUSH Q24H [facility] Last Admin: 05/19/18 17:45 Dose: 40 mg Sodium Chloride (Saline Flush) 10 ml FLUSH ASDIRECTED PRN PRN Reason: Keep Vein Open Sodium Chloride (Saline Flush) 2.5 ml FLUSH ASDIRECTED PRN PRN Reason: Keep Vein Open Discontinued Medications Diphenhydramine HCl (Benadryl) 25 mg IVPUSH ONETIME ONE Stop: 05/18/18 11:46 Last Admin: 05/18/18 13:56 Dose: 25 mg Diphenhydramine HCl (Benadryl) Confirm Administered Dose 50 mg .ROUTE .STK-MED ONE Stop: 05/18/18 13:57 Last Admin: 05/18/18 14:03 Dose: Not Given Hydromorphone HCl (Dilaudid) 1 mg IVPUSH Q3H PRN PRN Reason: Pain Last Admin: 05/19/18 13:14 Dose: 1 mg Sodium Chloride (Normal Saline) 1,000 mls @ 999 mls/hr IV STAT ONE Stop: 05/18/18 11:56 Last Admin: 05/18/18 11:23 Dose: 999 mls/hr Ciprofloxacin/Dextrose 400 mg/ (Premix) 200 mls @ 200 mls/hr IV NOW STA Stop: 05/18/18 13:19 Last Admin: 05/18/18 14:15 Dose: 200 mls/hr Metronidazole 500 mg/ Premix 100 mls @ 100 mls/hr IV ONETIME ONE Stop: 05/18/18 13:18 Last Admin: 05/18/18 13:02 Dose: 100 mls/hr Sodium Chloride (Normal Saline) 1,000 mls @ 125 mls/hr IV .Bolus ONE Stop: 05/18/18 20:30 Last Admin: 05/18/18 12:37 Dose: 125 mls/hr Lactated Ringer's (Ringers, Lactated) 1,000 mls @ 125 mls/hr IV ASDIRECTED [facility] Last Admin: 05/18/18 16:19 Dose: 125 mls/hr Iopamidol (Isovue-370 (76%)) 100 ml IVPUSH ONETIME STA Stop: 05/18/18 12:12 Last Admin: 05/18/18 12:21 Dose: 100 ml Ketorolac Tromethamine (Toradol) 30 mg IVPUSH ONETIME ONE Stop: 05/18/18 11:27 Last Admin: 05/18/18 11:35 Dose: 30 mg Methylprednisolone Sodium Succinate (Solu-Medrol) 60 mg IVPUSH DAILY [facility] Last Admin: 05/19/18 08:01 Dose: 60 mg Morphine Sulfate (Morphine) 2 mg IVPUSH ONETIME ONE Stop: 05/18/18 11:46 Last Admin: 05/18/18 14:10 Dose: 1 mg Morphine Sulfate (Morphine) 2 mg IVPUSH ONETIME ONE Stop: 05/18/18 13:11 Last Admin: 05/18/18 14:04 Dose: Not Given Morphine Sulfate (Morphine) Confirm Administered Dose 2 mg .ROUTE .STK-MED ONE Stop: 05/18/18 13:54 Last Admin: 05/18/18 14:04 Dose: Not Given Morphine Sulfate (Morphine) 2 mg IVPUSH Q2H PRN PRN Reason: Pain (severe 7-10) Stop: 05/19/18 14:55 Last Admin: 05/18/18 16:34 Dose: 2 mg Ondansetron HCl (Zofran) 4 mg IVPUSH ONETIME ONE Stop: 05/18/18 10:57 Last Admin: 05/18/18 11:23 Dose: 4 mg - Exam General: Alert, Oriented, Cooperative Lungs: Normal Respiratory Effort Cardiovascular: Regular Rate GI/Abdominal Exam: Soft, Non-Tender, No Distention Consult PN Assessment/Plan Procedures: Procedures ASSAY OF CK (CPK) (01/20/17) CARPAL TUNNEL SURGERY (11/17/16) COMPLETE CBC W/AUTO DIFF WBC (01/20/17) COMPREHEN METABOLIC PANEL (01/20/17) DRAIN/INJ JOINT/BURSA W/O US (11/17/16) MRI BRAIN STEM W/O & W/DYE (12/23/16) ROUTINE VENIPUNCTURE (01/20/17) X-RAY EXAM OF ELBOW (05/31/17) (1) Colitis SNOMED Code(s): 47871989 Code(s): K52.9 - NONINFECTIVE GASTROENTERITIS AND COLITIS, UNSPECIFIED Current Visit: Yes Problem List Initiated/Reviewed/Updated: Yes Plan: WBC still 16K today. Could advance diet to clears for today (would not advance beyond this until tomorrow). Recheck labs in am. Once WBC is within normal limits, transition to oral antibiotics and can start a regular diet.
[2018-05-20] MEDS: Ciprofloxacin in D5W 400 MG in Premix Bag 1 BAG IV SCH ×4 (08:50→20:18)
--- NOTE | 2018-05-20 12:52 | PCM.PN ---
- General Info Date of Service: 05/20/18 Subjective Update: Patient vomited once today .She also had an explosive Bm. she start having BM and lot of gas after we start feeding her. Later on she had some cramping and worsening of abdominal pain , on clear liquid diet Pain Score: 4 - Review of Systems General: Reports: No Symptoms HEENT: Reports: No Symptoms Pulmonary: Reports: No Symptoms Cardiovascular: Reports: No Symptoms Gastrointestinal: Reports: Abdominal Pain, Diarrhea, Vomiting Genitourinary: Reports: No Symptoms Musculoskeletal: Reports: No Symptoms Skin: Reports: No Symptoms Neurological: Reports: No Symptoms Psychiatric: Reports: No Symptoms - Patient Data Vitals - Most Recent: Last Vital Signs Temp 97.5 F 05/20/18 08:00 Pulse 72 05/20/18 08:00 Resp 16 05/20/18 08:00 BP 104/64 05/20/18 08:00 Pulse Ox 94 L 05/20/18 08:00 Weight - Most Recent: 200 lb I&O - Last 24 Hours: Intake & Output 05/19/18 05/20/18 05/20/18 22:59 06:59 14:59 Intake Total 200 1124 Output Total 1050 600 Balance -850 524 Lab Results Last 24 Hours: Laboratory Results - last 24 hr 05/20/18 05/20/18 Range/Units 05:30 05:30 WBC 16.32 H (4.0-11.0) K/uL RBC 3.64 L (4.30-5.90) M/uL Hgb 11.0 L (12.0-16.0) g/dL Hct 33.8 L (36.0-46.0) % MCV 92.9 (80.0-98.0) fL MCH 30.2 (27.0-32.0) pg MCHC 32.5 (31.0-37.0) g/dL RDW Std Deviation 43.5 (28.0-62.0) fl RDW Coeff of Antonio 13 (11.0-15.0) % Plt Count 176 (150-400) K/uL MPV 9.50 (7.40-12.00) fL Nucleated RBC % 0.0 /100WBC Nucleated RBCs # 0 K/uL Sodium 143 (136-145) mmol/L Potassium 3.5 (3.5-5.1) mmol/L Chloride 110 H (98-107) mmol/L Carbon Dioxide 26.9 (21.0-32.0) mmol/L BUN 9 (7.0-18.0) mg/dL Creatinine 0.9 (0.6-1.0) mg/dL Est Cr Clr Drug Dosing 68.88 mL/min Estimated GFR (MDRD) > 60.0 ml/min Glucose 124 H (74-106) mg/dL Calcium 7.8 L (8.5-10.1) mg/dL Total Bilirubin 0.2 (0.2-1.0) mg/dL AST 9 L (15-37) IU/L ALT 43 (14-63) IU/L Alkaline Phosphatase 65 (46-116) U/L Total Protein 5.6 L (6.4-8.2) g/dL Albumin 2.9 L (3.4-5.0) g/dL Globulin 2.7 (2.0-3.5) g/dL Albumin/Globulin Ratio 1.1 L (1.3-2.8) Trent Results Last 24 Hours: Microbiology 05/18/18 12:36 Aerobic Blood Culture - Preliminary Blood - Venous - Lab Draw NO GROWTH AFTER 2 DAYS Anaerobic Blood Culture - Preliminary NO GROWTH AFTER 2 DAYS 05/18/18 16:29 Stool Culture - Final Stool / Feces Campylobacter Antigen Assay - Final NEGATIVE CAMPYLOBACTER AG - Final NEGATIVE FOR SHIGA TOXIN 1 - Final NEGATIVE FOR SHIGA TOXIN 2 05/18/18 13:08 Aerobic Blood Culture - Preliminary Blood - Venous NO GROWTH AFTER 1 DAY Anaerobic Blood Culture - Final Med Orders - Current: Current Medications Acetaminophen (Tylenol Extra Strength) 500 mg PO ASDIRECTED PRN PRN Reason: Pain Hydrocodone Bitart/Acetaminophen ([place] 325-7.5 Mg) 1 tab PO Q4H PRN PRN Reason: Pain Last Admin: 05/20/18 10:12 Dose: 1 tab Metronidazole 500 mg/ Premix 100 mls @ 100 mls/hr IV QID [facility] Last Admin: 05/20/18 12:46 Dose: 100 mls/hr Ciprofloxacin/Dextrose 400 mg/ (Premix) 200 mls @ 200 mls/hr IV Q12H [facility] Last Admin: 05/20/18 08:50 Dose: 200 mls/hr Dextrose/Sodium Chloride (Dextrose 5%-Normal Saline) 1,000 mls @ 150 mls/hr IV ASDIRECTED [facility] Last Admin: 05/20/18 03:31 Dose: 150 mls/hr Metoclopramide HCl (Reglan) 10 mg IVPUSH Q6H PRN PRN Reason: nausea and vomiting Last Admin: 05/19/18 17:52 Dose: 10 mg Ondansetron HCl (Zofran) 4 mg IVPUSH Q4H PRN PRN Reason: Nausea Last Admin: 05/19/18 14:39 Dose: 4 mg Pantoprazole Sodium (Protonix Iv) 40 mg IVPUSH Q24H [facility] Last Admin: 05/19/18 17:45 Dose: 40 mg Sodium Chloride (Saline Flush) 10 ml FLUSH ASDIRECTED PRN PRN Reason: Keep Vein Open Sodium Chloride (Saline Flush) 2.5 ml FLUSH ASDIRECTED PRN PRN Reason: Keep Vein Open Discontinued Medications Diphenhydramine HCl (Benadryl) 25 mg IVPUSH ONETIME ONE Stop: 05/18/18 11:46 Last Admin: 05/18/18 13:56 Dose: 25 mg Diphenhydramine HCl (Benadryl) Confirm Administered Dose 50 mg .ROUTE .STK-MED ONE Stop: 05/18/18 13:57 Last Admin: 05/18/18 14:03 Dose: Not Given Hydromorphone HCl (Dilaudid) 1 mg IVPUSH Q3H PRN PRN Reason: Pain Last Admin: 05/19/18 13:14 Dose: 1 mg Sodium Chloride (Normal Saline) 1,000 mls @ 999 mls/hr IV STAT ONE Stop: 05/18/18 11:56 Last Admin: 05/18/18 11:23 Dose: 999 mls/hr Ciprofloxacin/Dextrose 400 mg/ (Premix) 200 mls @ 200 mls/hr IV NOW STA Stop: 05/18/18 13:19 Last Admin: 05/18/18 14:15 Dose: 200 mls/hr Metronidazole 500 mg/ Premix 100 mls @ 100 mls/hr IV ONETIME ONE Stop: 05/18/18 13:18 Last Admin: 05/18/18 13:02 Dose: 100 mls/hr Sodium Chloride (Normal Saline) 1,000 mls @ 125 mls/hr IV .Bolus ONE Stop: 05/18/18 20:30 Last Admin: 05/18/18 12:37 Dose: 125 mls/hr Lactated Ringer's (Ringers, Lactated) 1,000 mls @ 125 mls/hr IV ASDIRECTED [facility] Last Admin: 05/18/18 16:19 Dose: 125 mls/hr Iopamidol (Isovue-370 (76%)) 100 ml IVPUSH ONETIME STA Stop: 05/18/18 12:12 Last Admin: 05/18/18 12:21 Dose: 100 ml Ketorolac Tromethamine (Toradol) 30 mg IVPUSH ONETIME ONE Stop: 05/18/18 11:27 Last Admin: 05/18/18 11:35 Dose: 30 mg Methylprednisolone Sodium Succinate (Solu-Medrol) 60 mg IVPUSH DAILY [facility] Last Admin: 05/19/18 08:01 Dose: 60 mg Morphine Sulfate (Morphine) 2 mg IVPUSH ONETIME ONE Stop: 05/18/18 11:46 Last Admin: 05/18/18 14:10 Dose: 1 mg Morphine Sulfate (Morphine) 2 mg IVPUSH ONETIME ONE Stop: 05/18/18 13:11 Last Admin: 05/18/18 14:04 Dose: Not Given Morphine Sulfate (Morphine) Confirm Administered Dose 2 mg .ROUTE .STK-MED ONE Stop: 05/18/18 13:54 Last Admin: 05/18/18 14:04 Dose: Not Given Morphine Sulfate (Morphine) 2 mg IVPUSH Q2H PRN PRN Reason: Pain (severe 7-10) Stop: 05/19/18 14:55 Last Admin: 05/18/18 16:34 Dose: 2 mg Ondansetron HCl (Zofran) 4 mg IVPUSH ONETIME ONE Stop: 05/18/18 10:57 Last Admin: 05/18/18 11:23 Dose: 4 mg - Problem List & Annotations (1) Colitis, ischemic SNOMED Code(s): 19094847 Code(s): K55.9 - VASCULAR DISORDER OF INTESTINE, UNSPECIFIED Status: Acute Current Visit: Yes - Problem List Review Problem List Initiated/Reviewed/Updated: Yes - My Orders Last 24 Hours: My Active Orders 05/19/18 13:52 Acetaminophen/HYDROcodone [[place] 325-7.5 MG] 1 tab PO Q4H PRN 05/19/18 13:59 Consult to Physician [CONS] Routine 05/19/18 14:00 Notify Provider Consults [RC] ASDIRECTED 05/19/18 14:19 Ondansetron [Zofran] 4 mg IVPUSH Q4H PRN 05/19/18 17:00 Pantoprazole [ProTONIX IV] 40 mg IVPUSH Q24H 05/19/18 17:45 Metoclopramide [Reglan] 10 mg IVPUSH Q6H PRN 05/19/18 18:04 Communication Order [RC] ROUTINE 05/20/18 Lunch Clear Liquid Diet [DIET] 05/21/18 05:11 CBC W/O DIFF,HEMOGRAM [HEME] AM CMP [COMPREHENSIVE METABOLIC PN,CMP] [CHEM] AM 05/22/18 05:11 CBC W/O DIFF,HEMOGRAM [HEME] AM CMP [COMPREHENSIVE METABOLIC PN,CMP] [CHEM] AM 05/23/18 05:11 CBC W/O DIFF,HEMOGRAM [HEME] AM CMP [COMPREHENSIVE METABOLIC PN,CMP] [CHEM] AM - Plan Plan:: will continue with Ciprofloxacin 400 mg iv q 12 h and metronidazole 500 mg iv QID , Had worsening pain with clear liquid diet in the afternoon . F/up recommendations of surgery , clinically , WBC. Hypercoagulable state work up as outpatient dvt prof - lovenox 40 mg sq
[2018-05-20] MEDS: Pantoprazole 40 MG Vial IVPUSH SCH (16:39)
[2018-05-20] MEDS: Ondansetron 4 MG/2 ML SDV IVPUSH PRN ×2 (16:40→21:35)
[2018-05-20] MEDS ORDERED: Enoxaparin 40 MG/0.4 ML Syringe SUBCUT SCH (19:30)
[2018-05-21] MEDS: Acetaminophen/HYDROcodone 325-7.5 MG Tab PO PRN ×4 (03:49→17:53)
[2018-05-21] MEDS: Ondansetron 4 MG/2 ML SDV IVPUSH PRN ×4 (03:50→21:59)
[2018-05-21] MEDS: metroNIDAZOLE/Normal Saline 500 MG in Premix Bag 1 BAG IV SCH ×3 (05:55→19:27)
[2018-05-21 06:59] LABS: CHLORIDE,CL 110 mmol/L (98-107); SODIUM,NA 142 mmol/L (136-145)
[2018-05-21] MEDS: Dextrose 5%-0.9% NaCl 1,000 ML IV SCH ×2 (07:23→16:08)
[2018-05-21] MEDS: Ciprofloxacin in D5W 400 MG in Premix Bag 1 BAG IV SCH ×4 (08:29→20:44)
[2018-05-21] MEDS ORDERED: Potassium Chloride 20 MEQ Tab.ER PO ONE ×2 (08:48→17:08)
--- NOTE | 2018-05-21 14:11 | PCM.CONSN ---
- General Info Date of Service: 05/21/18 Subjective Update: Patient advanced to clears. Was nauseated and vomited once last night. She feels this is due to hunger. She felt well this morning and tolerated clears. No fevers, chills, and having some loose stools. Feels like her pain is a little worse this morning. Vitals stable overnight and WBC within normal limits today. - Review of Systems Pulmonary: Reports: No Symptoms Cardiovascular: Reports: No Symptoms Gastrointestinal: Reports: Abdominal Pain, Diarrhea Musculoskeletal: Reports: No Symptoms - Patient Data Vitals - Most Recent: Last Vital Signs Temp 37.0 C 05/21/18 12:00 Pulse 70 05/21/18 12:00 Resp 12 05/21/18 12:00 BP 108/62 05/21/18 12:00 Pulse Ox 95 05/21/18 12:00 Weight - Most Recent: 90.718 kg I&O - Last 24 Hours: Intake & Output 05/20/18 05/21/18 05/21/18 22:59 06:59 14:59 Intake Total 3943 1799 300 Output Total 650 2302 Balance 3293 -503 300 Lab Results Last 24 Hours: Laboratory Results - last 24 hr 05/21/18 05/21/18 Range/Units 06:29 06:29 WBC 10.57 (4.0-11.0) K/uL RBC 3.68 L (4.30-5.90) M/uL Hgb 11.0 L (12.0-16.0) g/dL Hct 33.9 L (36.0-46.0) % MCV 92.1 (80.0-98.0) fL MCH 29.9 (27.0-32.0) pg MCHC 32.4 (31.0-37.0) g/dL RDW Std Deviation 43.6 (28.0-62.0) fl RDW Coeff of Antonio 13 (11.0-15.0) % Plt Count 179 (150-400) K/uL MPV 9.40 (7.40-12.00) fL Nucleated RBC % 0.0 /100WBC Nucleated RBCs # 0 K/uL Sodium 142 (136-145) mmol/L Potassium 3.5 (3.5-5.1) mmol/L Chloride 110 H (98-107) mmol/L Carbon Dioxide 26.4 (21.0-32.0) mmol/L BUN 5 L (7.0-18.0) mg/dL Creatinine 0.9 (0.6-1.0) mg/dL Est Cr Clr Drug Dosing 68.88 mL/min Estimated GFR (MDRD) > 60.0 ml/min Glucose 102 (74-106) mg/dL Calcium 7.8 L (8.5-10.1) mg/dL Total Bilirubin 0.2 (0.2-1.0) mg/dL AST 12 L (15-37) IU/L ALT 39 (14-63) IU/L Alkaline Phosphatase 62 (46-116) U/L Total Protein 5.6 L (6.4-8.2) g/dL Albumin 2.8 L (3.4-5.0) g/dL Globulin 2.8 (2.0-3.5) g/dL Albumin/Globulin Ratio 1.0 L (1.3-2.8) Trent Results Last 24 Hours: Microbiology 05/18/18 13:08 Aerobic Blood Culture - Preliminary Blood - Venous NO GROWTH AFTER 3 DAYS Anaerobic Blood Culture - Final 05/18/18 12:36 Aerobic Blood Culture - Preliminary Blood - Venous - Lab Draw NO GROWTH AFTER 3 DAYS Anaerobic Blood Culture - Preliminary NO GROWTH AFTER 3 DAYS 05/18/18 16:29 Stool Culture - Final Stool / Feces Campylobacter Antigen Assay - Final NEGATIVE CAMPYLOBACTER AG - Final NEGATIVE FOR SHIGA TOXIN 1 - Final NEGATIVE FOR SHIGA TOXIN 2 Med Orders - Current: Current Medications Acetaminophen (Tylenol Extra Strength) 500 mg PO ASDIRECTED PRN PRN Reason: Pain Hydrocodone Bitart/Acetaminophen ([place] 325-7.5 Mg) 1 tab PO Q4H PRN PRN Reason: Pain Last Admin: 05/21/18 09:33 Dose: 1 tab Enoxaparin Sodium (Lovenox) 40 mg SUBCUT Q24H [facility] Last Admin: 05/20/18 20:21 Dose: 40 mg Metronidazole 500 mg/ Premix 100 mls @ 100 mls/hr IV QID [facility] Last Admin: 05/21/18 11:40 Dose: 100 mls/hr Ciprofloxacin/Dextrose 400 mg/ (Premix) 200 mls @ 200 mls/hr IV Q12H [facility] Last Admin: 08/19/18 08:29 Dose: 200 mls/hr Dextrose/Sodium Chloride (Dextrose 5%-Normal Saline) 1,000 mls @ 150 mls/hr IV ASDIRECTED [facility] Last Admin: 05/21/18 07:23 Dose: 150 mls/hr Metoclopramide HCl (Reglan) 10 mg IVPUSH Q6H PRN PRN Reason: nausea and vomiting Last Admin: 05/19/18 17:52 Dose: 10 mg Ondansetron HCl (Zofran) 4 mg IVPUSH Q4H PRN PRN Reason: Nausea Last Admin: 05/21/18 09:34 Dose: 4 mg Pantoprazole Sodium (Protonix Iv) 40 mg IVPUSH Q24H [facility] Last Admin: 05/20/18 16:39 Dose: 40 mg Sodium Chloride (Saline Flush) 10 ml FLUSH ASDIRECTED PRN PRN Reason: Keep Vein Open Sodium Chloride (Saline Flush) 2.5 ml FLUSH ASDIRECTED PRN PRN Reason: Keep Vein Open Discontinued Medications Diphenhydramine HCl (Benadryl) 25 mg IVPUSH ONETIME ONE Stop: 05/18/18 11:46 Last Admin: 05/18/18 13:56 Dose: 25 mg Diphenhydramine HCl (Benadryl) Confirm Administered Dose 50 mg .ROUTE .STK-MED ONE Stop: 05/18/18 13:57 Last Admin: 05/18/18 14:03 Dose: Not Given Hydromorphone HCl (Dilaudid) 1 mg IVPUSH Q3H PRN PRN Reason: Pain Last Admin: 05/19/18 13:14 Dose: 1 mg Sodium Chloride (Normal Saline) 1,000 mls @ 999 mls/hr IV STAT ONE Stop: 05/18/18 11:56 Last Admin: 05/18/18 11:23 Dose: 999 mls/hr Ciprofloxacin/Dextrose 400 mg/ (Premix) 200 mls @ 200 mls/hr IV NOW STA Stop: 05/18/18 13:19 Last Admin: 05/18/18 14:15 Dose: 200 mls/hr Metronidazole 500 mg/ Premix 100 mls @ 100 mls/hr IV ONETIME ONE Stop: 05/18/18 13:18 Last Admin: 05/18/18 13:02 Dose: 100 mls/hr Sodium Chloride (Normal Saline) 1,000 mls @ 125 mls/hr IV .Bolus ONE Stop: 05/18/18 20:30 Last Admin: 05/18/18 12:37 Dose: 125 mls/hr Lactated Ringer's (Ringers, Lactated) 1,000 mls @ 125 mls/hr IV ASDIRECTED [facility] Last Admin: 05/18/18 16:19 Dose: 125 mls/hr Iopamidol (Isovue-370 (76%)) 100 ml IVPUSH ONETIME STA Stop: 05/18/18 12:12 Last Admin: 05/18/18 12:21 Dose: 100 ml Ketorolac Tromethamine (Toradol) 30 mg IVPUSH ONETIME ONE Stop: 05/18/18 11:27 Last Admin: 05/18/18 11:35 Dose: 30 mg Methylprednisolone Sodium Succinate (Solu-Medrol) 60 mg IVPUSH DAILY [facility] Last Admin: 05/19/18 08:01 Dose: 60 mg Morphine Sulfate (Morphine) 2 mg IVPUSH ONETIME ONE Stop: 05/18/18 11:46 Last Admin: 05/18/18 14:10 Dose: 1 mg Morphine Sulfate (Morphine) 2 mg IVPUSH ONETIME ONE Stop: 05/18/18 13:11 Last Admin: 05/18/18 14:04 Dose: Not Given Morphine Sulfate (Morphine) Confirm Administered Dose 2 mg .ROUTE .STK-MED ONE Stop: 05/18/18 13:54 Last Admin: 05/18/18 14:04 Dose: Not Given Morphine Sulfate (Morphine) 2 mg IVPUSH Q2H PRN PRN Reason: Pain (severe 7-10) Stop: 05/19/18 14:55 Last Admin: 05/18/18 16:34 Dose: 2 mg Ondansetron HCl (Zofran) 4 mg IVPUSH ONETIME ONE Stop: 05/18/18 10:57 Last Admin: 05/18/18 11:23 Dose: 4 mg Potassium Chloride (Klor-Con M20) 40 meq PO ONETIME ONE Stop: 05/21/18 08:49 Last Admin: 05/21/18 09:32 Dose: 40 meq - Exam General: Alert, Oriented, Cooperative, No Acute Distress Lungs: Normal Respiratory Effort Cardiovascular: Regular Rate GI/Abdominal Exam: Soft, Non-Tender, No Distention, No Mass Consult PN Assessment/Plan Procedures: Procedures ASSAY OF CK (CPK) (01/20/17) CARPAL TUNNEL SURGERY (11/17/16) COMPLETE CBC W/AUTO DIFF WBC (01/20/17) COMPREHEN METABOLIC PANEL (01/20/17) DRAIN/INJ JOINT/BURSA W/O US (11/17/16) MRI BRAIN STEM W/O & W/DYE (12/23/16) ROUTINE VENIPUNCTURE (01/20/17) X-RAY EXAM OF ELBOW (05/31/17) (1) Colitis SNOMED Code(s): 51788094 Code(s): K52.9 - NONINFECTIVE GASTROENTERITIS AND COLITIS, UNSPECIFIED Current Visit: Yes Problem List Initiated/Reviewed/Updated: Yes Plan: On physical exam the patient feels the same. No distension, rebound or guarding. Can slowly advance diet. If her pain gets worse, make npo again and switch back to IV antibiotics. Can consider transfer to [place] as that is where patient has recieved care for this issue in the past if still not improving.
[2018-05-21] MEDS: Pantoprazole 40 MG Vial IVPUSH SCH (17:19)
[2018-05-21] MEDS ORDERED: Heparin Sodium 5,000 Units/ML Vial IV PRN (18:42)
[2018-05-21] MEDS ORDERED: Heparin Sod,Pork In 0.45% Nacl 25,000 UNIT/500 ML IV.SOLN IV SCH (18:45)
[2018-05-21] MEDS ORDERED: Heparin Sodium 5,000 Units/ML Vial IVPUSH ONE (18:45)
[2018-05-21] MEDS ORDERED: Iopamidol 755 MG/ML 200 ML Multipack Bottle IVPUSH STA (19:15)
--- NOTE | 2018-05-21 21:48 | PCM.PN ---
- General Info Date of Service: 05/21/18 - Review of Systems General: Reports: No Symptoms HEENT: Reports: No Symptoms Pulmonary: Reports: No Symptoms Cardiovascular: Reports: No Symptoms Gastrointestinal: Reports: Abdominal Pain, Diarrhea, Nausea, Vomiting Genitourinary: Reports: No Symptoms Musculoskeletal: Reports: No Symptoms Skin: Reports: No Symptoms Neurological: Reports: No Symptoms Psychiatric: Reports: No Symptoms - Patient Data Vitals - Most Recent: Last Vital Signs Temp 98.5 F 05/21/18 20:00 Pulse 67 05/21/18 20:00 Resp 18 05/21/18 20:00 BP 114/69 05/21/18 20:00 Pulse Ox 98 05/21/18 20:00 Weight - Most Recent: 200 lb I&O - Last 24 Hours: Intake & Output 05/21/18 05/21/18 05/21/18 06:59 14:59 22:59 Intake Total 4289 874 6070 Output Total 2302 3900 Balance -503 300 -1248 Lab Results Last 24 Hours: Laboratory Results - last 24 hr 05/21/18 05/21/18 05/21/18 Range/Units 06:29 06:29 18:50 WBC 10.57 (4.0-11.0) K/uL RBC 3.68 L (4.30-5.90) M/uL Hgb 11.0 L (12.0-16.0) g/dL Hct 33.9 L (36.0-46.0) % MCV 92.1 (80.0-98.0) fL MCH 29.9 (27.0-32.0) pg MCHC 32.4 (31.0-37.0) g/dL RDW Std Deviation 43.6 (28.0-62.0) fl RDW Coeff of Antonio 13 (11.0-15.0) % Plt Count 179 (150-400) K/uL MPV 9.40 (7.40-12.00) fL Nucleated RBC % 0.0 /100WBC Nucleated RBCs # 0 K/uL APTT (18.6-31.3) SEC Lactate 0.5 (0.20-2.00) mmol/L Sodium 142 (136-145) mmol/L Potassium 3.5 (3.5-5.1) mmol/L Chloride 110 H (98-107) mmol/L Carbon Dioxide 26.4 (21.0-32.0) mmol/L BUN 5 L (7.0-18.0) mg/dL Creatinine 0.9 (0.6-1.0) mg/dL Est Cr Clr Drug Dosing 68.88 mL/min Estimated GFR (MDRD) > 60.0 ml/min Glucose 102 (74-106) mg/dL Calcium 7.8 L (8.5-10.1) mg/dL Total Bilirubin 0.2 (0.2-1.0) mg/dL AST 12 L (15-37) IU/L ALT 39 (14-63) IU/L Alkaline Phosphatase 62 (46-116) U/L Total Protein 5.6 L (6.4-8.2) g/dL Albumin 2.8 L (3.4-5.0) g/dL Globulin 2.8 (2.0-3.5) g/dL Albumin/Globulin Ratio 1.0 L (1.3-2.8) 05/21/18 Range/Units 20:18 WBC (4.0-11.0) K/uL RBC (4.30-5.90) M/uL Hgb (12.0-16.0) g/dL Hct (36.0-46.0) % MCV (80.0-98.0) fL MCH (27.0-32.0) pg MCHC (31.0-37.0) g/dL RDW Std Deviation (28.0-62.0) fl RDW Coeff of Antonio (11.0-15.0) % Plt Count (150-400) K/uL MPV (7.40-12.00) fL Nucleated RBC % /100WBC Nucleated RBCs # K/uL APTT 28.9 (18.6-31.3) SEC Lactate (0.20-2.00) mmol/L Sodium (136-145) mmol/L Potassium (3.5-5.1) mmol/L Chloride (98-107) mmol/L Carbon Dioxide (21.0-32.0) mmol/L BUN (7.0-18.0) mg/dL Creatinine (0.6-1.0) mg/dL Est Cr Clr Drug Dosing mL/min Estimated GFR (MDRD) ml/min Glucose (74-106) mg/dL Calcium (8.5-10.1) mg/dL Total Bilirubin (0.2-1.0) mg/dL AST (15-37) IU/L ALT (14-63) IU/L Alkaline Phosphatase (46-116) U/L Total Protein (6.4-8.2) g/dL Albumin (3.4-5.0) g/dL Globulin (2.0-3.5) g/dL Albumin/Globulin Ratio (1.3-2.8) Trent Results Last 24 Hours: Microbiology 05/18/18 13:08 Aerobic Blood Culture - Preliminary Blood - Venous NO GROWTH AFTER 3 DAYS Anaerobic Blood Culture - Final 05/18/18 12:36 Aerobic Blood Culture - Preliminary Blood - Venous - Lab Draw NO GROWTH AFTER 3 DAYS Anaerobic Blood Culture - Preliminary NO GROWTH AFTER 3 DAYS Med Orders - Current: Current Medications Acetaminophen (Tylenol Extra Strength) 500 mg PO ASDIRECTED PRN PRN Reason: Pain Hydrocodone Bitart/Acetaminophen ([place] 325-7.5 Mg) 1 tab PO Q4H PRN PRN Reason: Pain Last Admin: 05/21/18 17:53 Dose: 1 tab Acidophilus/Pectin (Acidophilus/Pectin, [place]) 1 tab PO DAILY [facility] Enoxaparin Sodium (Lovenox) 40 mg SUBCUT Q24H [facility] Heparin Sodium (Porcine) (Heparin Sodium) 1,500 - 2,500 units IV ASDIRECTED PRN PRN Reason: PER HEP DRIP PROTOCOL Metronidazole 500 mg/ Premix 100 mls @ 100 mls/hr IV QID [facility] Last Admin: 05/21/18 19:27 Dose: 100 mls/hr Ciprofloxacin/Dextrose 400 mg/ (Premix) 200 mls @ 200 mls/hr IV Q12H [facility] Last Admin: 05/21/18 20:44 Dose: 200 mls/hr Dextrose/Sodium Chloride (Dextrose 5%-Normal Saline) 1,000 mls @ 150 mls/hr IV ASDIRECTED [facility] Last Admin: 05/21/18 16:08 Dose: 150 mls/hr Metoclopramide HCl (Reglan) 10 mg IVPUSH Q6H PRN PRN Reason: nausea and vomiting Last Admin: 05/19/18 17:52 Dose: 10 mg Ondansetron HCl (Zofran) 4 mg IVPUSH Q4H PRN PRN Reason: Nausea Last Admin: 05/21/18 14:29 Dose: 4 mg Pantoprazole Sodium (Protonix Iv) 40 mg IVPUSH Q24H [facility] Last Admin: 05/21/18 17:19 Dose: 40 mg Sodium Chloride (Saline Flush) 10 ml FLUSH ASDIRECTED PRN PRN Reason: Keep Vein Open Sodium Chloride (Saline Flush) 2.5 ml FLUSH ASDIRECTED PRN PRN Reason: Keep Vein Open Discontinued Medications Diphenhydramine HCl (Benadryl) 25 mg IVPUSH ONETIME ONE Stop: 05/18/18 11:46 Last Admin: 05/18/18 13:56 Dose: 25 mg Diphenhydramine HCl (Benadryl) Confirm Administered Dose 50 mg .ROUTE .STK-MED ONE Stop: 05/18/18 13:57 Last Admin: 05/18/18 14:03 Dose: Not Given Enoxaparin Sodium (Lovenox) 40 mg SUBCUT Q24H [facility] Last Admin: 05/20/18 20:21 Dose: 40 mg Heparin Sodium (Porcine) (Heparin Sodium) 5,000 units IVPUSH ONETIME ONE Stop: 05/21/18 18:46 Hydromorphone HCl (Dilaudid) 1 mg IVPUSH Q3H PRN PRN Reason: Pain Last Admin: 05/19/18 13:14 Dose: 1 mg Sodium Chloride (Normal Saline) 1,000 mls @ 999 mls/hr IV STAT ONE Stop: 05/18/18 11:56 Last Admin: 05/18/18 11:23 Dose: 999 mls/hr Ciprofloxacin/Dextrose 400 mg/ (Premix) 200 mls @ 200 mls/hr IV NOW STA Stop: 05/18/18 13:19 Last Admin: 05/18/18 14:15 Dose: 200 mls/hr Metronidazole 500 mg/ Premix 100 mls @ 100 mls/hr IV ONETIME ONE Stop: 05/18/18 13:18 Last Admin: 05/18/18 13:02 Dose: 100 mls/hr Sodium Chloride (Normal Saline) 1,000 mls @ 125 mls/hr IV .Bolus ONE Stop: 05/18/18 20:30 Last Admin: 05/18/18 12:37 Dose: 125 mls/hr Lactated Ringer's (Ringers, Lactated) 1,000 mls @ 125 mls/hr IV ASDIRECTED [facility] Last Admin: 05/18/18 16:19 Dose: 125 mls/hr Heparin Sodium/Sodium Chloride (Heparin-1/2ns 25,000 Units/500) 25,000 unit in 500 mls @ 26 mls/hr IV TITRATE [facility]; Protocol Iopamidol (Isovue-370 (76%)) 100 ml IVPUSH ONETIME STA Stop: 05/18/18 12:12 Last Admin: 05/18/18 12:21 Dose: 100 ml Iopamidol (Isovue Multipack-370 (76%)) 100 ml IVPUSH ONETIME STA Stop: 05/21/18 19:16 Last Admin: 05/21/18 19:15 Dose: 100 ml Ketorolac Tromethamine (Toradol) 30 mg IVPUSH ONETIME ONE Stop: 05/18/18 11:27 Last Admin: 05/18/18 11:35 Dose: 30 mg Methylprednisolone Sodium Succinate (Solu-Medrol) 60 mg IVPUSH DAILY [facility] Last Admin: 05/19/18 08:01 Dose: 60 mg Morphine Sulfate (Morphine) 2 mg IVPUSH ONETIME ONE Stop: 05/18/18 11:46 Last Admin: 05/18/18 14:10 Dose: 1 mg Morphine Sulfate (Morphine) 2 mg IVPUSH ONETIME ONE Stop: 05/18/18 13:11 Last Admin: 05/18/18 14:04 Dose: Not Given Morphine Sulfate (Morphine) Confirm Administered Dose 2 mg .ROUTE .STK-MED ONE Stop: 05/18/18 13:54 Last Admin: 05/18/18 14:04 Dose: Not Given Morphine Sulfate (Morphine) 2 mg IVPUSH Q2H PRN PRN Reason: Pain (severe 7-10) Stop: 05/19/18 14:55 Last Admin: 05/18/18 16:34 Dose: 2 mg Ondansetron HCl (Zofran) 4 mg IVPUSH ONETIME ONE Stop: 05/18/18 10:57 Last Admin: 05/18/18 11:23 Dose: 4 mg Potassium Chloride (Klor-Con M20) 40 meq PO ONETIME ONE Stop: 05/21/18 08:49 Last Admin: 05/21/18 09:32 Dose: 40 meq Potassium Chloride (Klor-Con M20) 40 meq PO ONETIME ONE Stop: 05/21/18 17:09 Last Admin: 05/21/18 17:50 Dose: 40 meq - Exam General: Alert, Oriented HEENT: Pupils Equal Neck: Supple, Trachea Midline Lungs: Clear to Auscultation, Normal Respiratory Effort Cardiovascular: Regular Rate, Regular Rhythm, No Murmurs GI/Abdominal Exam: Soft, Non-Tender, Other (mild distension) Back Exam: Normal Inspection Extremities: Normal Inspection - Problem List & Annotations (1) Colitis, ischemic SNOMED Code(s): 31975468 Code(s): K55.9 - VASCULAR DISORDER OF INTESTINE, UNSPECIFIED Status: Acute Current Visit: Yes - Problem List Review Problem List Initiated/Reviewed/Updated: Yes - My Orders Last 24 Hours: My Active Orders 05/21/18 18:36 Abdomen Pelvis w wo Cont [CT] Stat 05/21/18 18:42 Heparin Sodium 1,500 - 2,500 units IV ASDIRECTED PRN 05/21/18 20:18 aPTT [PTT,PARTIAL THROMBOPLSTIN TIME] [COAG] Urgent 05/21/18 21:08 OCCULT BLOOD DIAGNOSTIC [OP] Routine 05/21/18 21:45 Enoxaparin [Lovenox] 40 mg SUBCUT Q24H 05/22/18 05:11 CBC W/O DIFF,HEMOGRAM [HEME] AM CMP [COMPREHENSIVE METABOLIC PN,CMP] [CHEM] AM 05/22/18 09:00 Acidophilus/Pectin, [place] 1 tab PO DAILY 05/22/18 Breakfast NPO Now [Nothing per Oral Now Diet] [DIET] 05/23/18 05:11 CBC W/O DIFF,HEMOGRAM [HEME] AM CMP [COMPREHENSIVE METABOLIC PN,CMP] [CHEM] AM - Plan Plan:: will continue with Ciprofloxacin 400 mg iv q 12 h and metronidazole 500 mg iv QID , Had worsening pain with clear liquid diet in the afternoon . Repeat Ct of the abdomen showed improving colitis. thickening of Gb wall small pleural effusions and small fluid in pelvis. Will hold Iv fluids.contininue Iv antibiotics , NPO. Hypercoagulable state work up as outpatient dvt prof - lovenox 40 mg sq
[2018-05-21] MEDS ORDERED: Enoxaparin 40 MG/0.4 ML Syringe SUBCUT SCH (22:00)
[2018-05-22] MEDS: metroNIDAZOLE/Normal Saline 500 MG in Premix Bag 1 BAG IV SCH ×2 (00:27→05:34)
[2018-05-22] MEDS: Ondansetron 4 MG/2 ML SDV IVPUSH PRN (06:43)
[2018-05-22 08:16] LABS: CHLORIDE,CL 106 mmol/L (98-107); SODIUM,NA 139 mmol/L (136-145)
[2018-05-22] MEDS ORDERED: Acidophilus with Citrus Pectin Tab PO SCH (09:00)
--- NOTE | 2018-05-22 09:00 | PCM.CONSN ---
- General Info Date of Service: 05/22/18 Subjective Update: Patients diet was advanced to regular yesterday. With this she became nauseated and vomited. She felt more bloated with increasing abdominal pain. She was made NPO and CT abdomen/pelvis was repeated. This showed improvement in her colonic thickening. There was questionable gallbladder wall thickening or distension. US was recommended. Patient feels much improved this morning. Her abdominal pain , nausea, and bloating have all resolved. She has an appetite and would like to eat. - Review of Systems General: Reports: No Symptoms Pulmonary: Reports: No Symptoms Cardiovascular: Reports: No Symptoms Gastrointestinal: Reports: No Symptoms - Patient Data Vitals - Most Recent: Last Vital Signs Temp 36.9 C 05/22/18 07:54 Pulse 65 05/22/18 07:54 Resp 16 05/22/18 07:54 BP 111/65 05/22/18 07:54 Pulse Ox 96 05/22/18 07:54 Weight - Most Recent: 90.718 kg I&O - Last 24 Hours: Intake & Output 05/21/18 05/22/18 05/22/18 22:59 06:59 14:59 Intake Total 2952 100 Output Total 3900 2350 Balance -948 -2250 Lab Results Last 24 Hours: Laboratory Results - last 24 hr 05/21/18 05/21/18 05/22/18 Range/Units 18:50 20:18 07:15 WBC 9.28 (4.0-11.0) K/uL RBC 4.11 L (4.30-5.90) M/uL Hgb 12.3 (12.0-16.0) g/dL Hct 37.2 (36.0-46.0) % MCV 90.5 (80.0-98.0) fL MCH 29.9 (27.0-32.0) pg MCHC 33.1 (31.0-37.0) g/dL RDW Std Deviation 41.3 (28.0-62.0) fl RDW Coeff of Antonio 13 (11.0-15.0) % Plt Count 185 (150-400) K/uL MPV 9.50 (7.40-12.00) fL Nucleated RBC % 0.0 /100WBC Nucleated RBCs # 0 K/uL APTT 28.9 (18.6-31.3) SEC Lactate 0.5 (0.20-2.00) mmol/L Sodium (136-145) mmol/L Potassium (3.5-5.1) mmol/L Chloride (98-107) mmol/L Carbon Dioxide (21.0-32.0) mmol/L BUN (7.0-18.0) mg/dL Creatinine (0.6-1.0) mg/dL Est Cr Clr Drug Dosing mL/min Estimated GFR (MDRD) ml/min Glucose (74-106) mg/dL Calcium (8.5-10.1) mg/dL Total Bilirubin (0.2-1.0) mg/dL AST (15-37) IU/L ALT (14-63) IU/L Alkaline Phosphatase (46-116) U/L Total Protein (6.4-8.2) g/dL Albumin (3.4-5.0) g/dL Globulin (2.0-3.5) g/dL Albumin/Globulin Ratio (1.3-2.8) 05/22/18 Range/Units 07:15 WBC (4.0-11.0) K/uL RBC (4.30-5.90) M/uL Hgb (12.0-16.0) g/dL Hct (36.0-46.0) % MCV (80.0-98.0) fL MCH (27.0-32.0) pg MCHC (31.0-37.0) g/dL RDW Std Deviation (28.0-62.0) fl RDW Coeff of Antonio (11.0-15.0) % Plt Count (150-400) K/uL MPV (7.40-12.00) fL Nucleated RBC % /100WBC Nucleated RBCs # K/uL APTT (18.6-31.3) SEC Lactate (0.20-2.00) mmol/L Sodium 139 (136-145) mmol/L Potassium 4.0 (3.5-5.1) mmol/L Chloride 106 (98-107) mmol/L Carbon Dioxide 28.4 (21.0-32.0) mmol/L BUN 5 L (7.0-18.0) mg/dL Creatinine 0.9 (0.6-1.0) mg/dL Est Cr Clr Drug Dosing 68.88 mL/min Estimated GFR (MDRD) > 60.0 ml/min Glucose 95 (74-106) mg/dL Calcium 8.5 (8.5-10.1) mg/dL Total Bilirubin 0.3 (0.2-1.0) mg/dL AST 20 (15-37) IU/L ALT 46 (14-63) IU/L Alkaline Phosphatase 71 (46-116) U/L Total Protein 6.3 L (6.4-8.2) g/dL Albumin 3.4 (3.4-5.0) g/dL Globulin 2.9 (2.0-3.5) g/dL Albumin/Globulin Ratio 1.2 L (1.3-2.8) Trent Results Last 24 Hours: Microbiology 05/22/18 05:35 Stool Occult Blood (TRENT) - Final Stool / Feces NEGATIVE OCCULT BLOOD 05/18/18 13:08 Aerobic Blood Culture - Preliminary Blood - Venous NO GROWTH AFTER 3 DAYS Anaerobic Blood Culture - Final 05/18/18 12:36 Aerobic Blood Culture - Preliminary Blood - Venous - Lab Draw NO GROWTH AFTER 3 DAYS Anaerobic Blood Culture - Preliminary NO GROWTH AFTER 3 DAYS Med Orders - Current: Current Medications Acetaminophen (Tylenol Extra Strength) 500 mg PO ASDIRECTED PRN PRN Reason: Pain Hydrocodone Bitart/Acetaminophen ([place] 325-7.5 Mg) 1 tab PO Q4H PRN PRN Reason: Pain Last Admin: 05/21/18 17:53 Dose: 1 tab Acidophilus/Pectin (Acidophilus/Pectin, [place]) 1 tab PO DAILY [facility] Enoxaparin Sodium (Lovenox) 40 mg SUBCUT Q24H [facility] Last Admin: 05/21/18 22:24 Dose: 40 mg Heparin Sodium (Porcine) (Heparin Sodium) 1,500 - 2,500 units IV ASDIRECTED PRN PRN Reason: PER HEP DRIP PROTOCOL Metronidazole 500 mg/ Premix 100 mls @ 100 mls/hr IV QID [facility] Last Admin: 05/22/18 05:34 Dose: 100 mls/hr Ciprofloxacin/Dextrose 400 mg/ (Premix) 200 mls @ 200 mls/hr IV Q12H [facility] Last Infusion: 05/21/18 21:45 Dose: Infused Dextrose/Sodium Chloride (Dextrose 5%-Normal Saline) 1,000 mls @ 150 mls/hr IV ASDIRECTED [facility] Last Admin: 05/21/18 16:08 Dose: 150 mls/hr Metoclopramide HCl (Reglan) 10 mg IVPUSH Q6H PRN PRN Reason: nausea and vomiting Last Admin: 05/19/18 17:52 Dose: 10 mg Ondansetron HCl (Zofran) 4 mg IVPUSH Q4H PRN PRN Reason: Nausea Last Admin: 05/22/18 06:43 Dose: 4 mg Pantoprazole Sodium (Protonix Iv) 40 mg IVPUSH Q24H [facility] Last Admin: 05/21/18 17:19 Dose: 40 mg Sodium Chloride (Saline Flush) 10 ml FLUSH ASDIRECTED PRN PRN Reason: Keep Vein Open Sodium Chloride (Saline Flush) 2.5 ml FLUSH ASDIRECTED PRN PRN Reason: Keep Vein Open Discontinued Medications Diphenhydramine HCl (Benadryl) 25 mg IVPUSH ONETIME ONE Stop: 05/18/18 11:46 Last Admin: 05/18/18 13:56 Dose: 25 mg Diphenhydramine HCl (Benadryl) Confirm Administered Dose 50 mg .ROUTE .STK-MED ONE Stop: 05/18/18 13:57 Last Admin: 05/18/18 14:03 Dose: Not Given Enoxaparin Sodium (Lovenox) 40 mg SUBCUT Q24H [facility] Last Admin: 05/20/18 20:21 Dose: 40 mg Heparin Sodium (Porcine) (Heparin Sodium) 5,000 units IVPUSH ONETIME ONE Stop: 05/21/18 18:46 Last Admin: 05/21/18 22:24 Dose: Not Given Hydromorphone HCl (Dilaudid) 1 mg IVPUSH Q3H PRN PRN Reason: Pain Last Admin: 05/19/18 13:14 Dose: 1 mg Sodium Chloride (Normal Saline) 1,000 mls @ 999 mls/hr IV STAT ONE Stop: 05/18/18 11:56 Last Admin: 05/18/18 11:23 Dose: 999 mls/hr Ciprofloxacin/Dextrose 400 mg/ (Premix) 200 mls @ 200 mls/hr IV NOW STA Stop: 05/18/18 13:19 Last Admin: 05/18/18 14:15 Dose: 200 mls/hr Metronidazole 500 mg/ Premix 100 mls @ 100 mls/hr IV ONETIME ONE Stop: 05/18/18 13:18 Last Admin: 05/18/18 13:02 Dose: 100 mls/hr Sodium Chloride (Normal Saline) 1,000 mls @ 125 mls/hr IV .Bolus ONE Stop: 05/18/18 20:30 Last Admin: 05/18/18 12:37 Dose: 125 mls/hr Lactated Ringer's (Ringers, Lactated) 1,000 mls @ 125 mls/hr IV ASDIRECTED [facility] Last Admin: 05/18/18 16:19 Dose: 125 mls/hr Heparin Sodium/Sodium Chloride (Heparin-1/2ns 25,000 Units/500) 25,000 unit in 500 mls @ 26 mls/hr IV TITRATE [facility]; Protocol Iopamidol (Isovue-370 (76%)) 100 ml IVPUSH ONETIME STA Stop: 05/18/18 12:12 Last Admin: 05/18/18 12:21 Dose: 100 ml Iopamidol (Isovue Multipack-370 (76%)) 100 ml IVPUSH ONETIME STA Stop: 05/21/18 19:16 Last Admin: 05/21/18 19:15 Dose: 100 ml Ketorolac Tromethamine (Toradol) 30 mg IVPUSH ONETIME ONE Stop: 05/18/18 11:27 Last Admin: 05/18/18 11:35 Dose: 30 mg Methylprednisolone Sodium Succinate (Solu-Medrol) 60 mg IVPUSH DAILY [facility] Last Admin: 05/19/18 08:01 Dose: 60 mg Morphine Sulfate (Morphine) 2 mg IVPUSH ONETIME ONE Stop: 05/18/18 11:46 Last Admin: 05/18/18 14:10 Dose: 1 mg Morphine Sulfate (Morphine) 2 mg IVPUSH ONETIME ONE Stop: 05/18/18 13:11 Last Admin: 05/18/18 14:04 Dose: Not Given Morphine Sulfate (Morphine) Confirm Administered Dose 2 mg .ROUTE .STK-MED ONE Stop: 05/18/18 13:54 Last Admin: 05/18/18 14:04 Dose: Not Given Morphine Sulfate (Morphine) 2 mg IVPUSH Q2H PRN PRN Reason: Pain (severe 7-10) Stop: 05/19/18 14:55 Last Admin: 05/18/18 16:34 Dose: 2 mg Ondansetron HCl (Zofran) 4 mg IVPUSH ONETIME ONE Stop: 05/18/18 10:57 Last Admin: 05/18/18 11:23 Dose: 4 mg Potassium Chloride (Klor-Con M20) 40 meq PO ONETIME ONE Stop: 05/21/18 08:49 Last Admin: 05/21/18 09:32 Dose: 40 meq Potassium Chloride (Klor-Con M20) 40 meq PO ONETIME ONE Stop: 05/21/18 17:09 Last Admin: 05/21/18 17:50 Dose: 40 meq - Exam General: Alert, Oriented, Cooperative Lungs: Normal Respiratory Effort Cardiovascular: Regular Rate GI/Abdominal Exam: Soft, Non-Tender, No Distention, No Mass Consult PN Assessment/Plan Procedures: Procedures ASSAY OF CK (CPK) (01/20/17) CARPAL TUNNEL SURGERY (11/17/16) COMPLETE CBC W/AUTO DIFF WBC (01/20/17) COMPREHEN METABOLIC PANEL (01/20/17) DRAIN/INJ JOINT/BURSA W/O US (11/17/16) MRI BRAIN STEM W/O & W/DYE (12/23/16) ROUTINE VENIPUNCTURE (01/20/17) X-RAY EXAM OF ELBOW (05/31/17) (1) Colitis SNOMED Code(s): 08368506 Code(s): K52.9 - NONINFECTIVE GASTROENTERITIS AND COLITIS, UNSPECIFIED Current Visit: Yes Problem List Initiated/Reviewed/Updated: Yes My Orders Last 24 Hours: My Active Orders 05/22/18 08:51 Abdomen Ltd [US] Routine 05/22/18 Lunch Clear Liquid Diet [DIET] Plan: On physical exam the patient is greatly improved. Lactate was norml last evening. Her labs are all normal. Agree with advancing diet as tolerated today. Will start with clears. I ordered a RUQ US to better characterize the gallbladder. If US appears normal and patient tolerates diet advancement she can have her antibiotics switched to po. If she tolerates all of this, could potentially go home tonight vs early tomorrow morning.
[2018-05-22] MEDS: Ciprofloxacin in D5W 400 MG in Premix Bag 1 BAG IV SCH ×2 (10:01)
[2018-05-22 11:52] VITALS: BP 126/75
--- NOTE | 2018-05-22 13:58 | PCM.DCSUM1 ---
Discharge Summary - Hospital Course HPI Initial Comments: Patient 42 y old female presented to hospital today to to abdominal pain that is localized diffuse in the abdomen and is associated with tenesmus and small amount of mucoid passing , occasional streaks of blood.Her symptoms started 3 weeks ago and she states that she thinks this was brought on by her eating broccoli and cauliflower , raw salad. Her stool was initially more bloody and later on it became mucoid and was associated with abdominal pain that was getting progressively worse.Denies N and vomiting or fever. Patient was seen at [facility] in [facility] on August 2017 and for similar symptoms and he had colonoscopy and she was told she has a colitis that starts with" e" but she doesn't remember the name of it , also she doesn't remember the GI doctor. In August 2017 she had colitis only for about 1 week and she says she lost about 50 lbs and she was treated with Iv antibiotics and steroids Diagnosis: Stroke: No - Discharge Data Discharge Date: 05/22/18 Discharge Disposition: Home, Self-Care 01 Condition: Fair - Discharge Diagnosis/Problem(s) (1) Colitis, ischemic SNOMED Code(s): 31716446 ICD Code: K55.9 - VASCULAR DISORDER OF INTESTINE, UNSPECIFIED Status: Acute (2) Hypercoagulable state SNOMED Code(s): 93843066 ICD Code: D68.59 - OTHER PRIMARY THROMBOPHILIA Status: Acute (3) Antiphospholipid antibody positive SNOMED Code(s): 498124709 ICD Code: R76.0 - RAISED ANTIBODY TITER Status: Acute - Patient Summary/Data Consults: Consultations 05/19/18 13:59 Consult to Physician [CONS] Routine Hospital Course: Patient admitted in the hospital with pancolitis , she was treated with Iv antibiotics broad spectrum ( ciprofloxacin and metronidazole Iv).Her symptoms improved and she was stable to be discharged today , f/up with PCP and with her gastroenterologyst in [facility]. I have discussed with her Biofuels Research Scientist Dr. Cowan , patient had phospholipid antibodies and he recommended her to f/up with him in the clinic in [facility] on May 31 and with to establish care with Dr. Chapin here for her underlying hypercoagulable state. He said she will need to be anticoagulated with coumadin , eliquis does not always work in the antiphospholipid antibodies syndrome. 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 - Patient Instructions Diet: Usual Diet as Tolerated Activity: As Tolerated Driving: May Drive Today Showering/Bathing: May Shower Other/Special Instructions: avoid NSAIDS, avoid mild products - Discharge Plan Prescriptions/Med Rec: Levofloxacin [Levaquin] 750 mg PO DAILY #10 tablet metroNIDAZOLE [Flagyl] 500 mg PO TID #30 tab Home Medications: Home Meds Acetaminophen 1 tab PO ASDIRECTED PRN 10/26/16 [History] Levofloxacin [Levaquin] 750 mg PO DAILY #10 tablet 05/22/18 [Rx] metroNIDAZOLE [Flagyl] 500 mg PO TID #30 tab 05/22/18 [Rx] Patient Handouts: Levofloxacin tablets, Colitis, Metronidazole tablets or capsules Referrals: [facility] [Outside] Makeda Curtis MD [Physician] - 06/07/18 11:00 am Ericka Chapin MD [Ordering Only Provider] - Nadine Cantrell MD [Physician] - 05/30/18 8:15 am - Discharge Summary/Plan Comment DC Time >30 min.: Yes - General Info Date of Service: 05/22/18 Functional Status: Reports: Pain Controlled - Review of Systems General: Reports: No Symptoms HEENT: Reports: No Symptoms Pulmonary: Reports: No Symptoms Cardiovascular: Reports: No Symptoms Gastrointestinal: Reports: No Symptoms Genitourinary: Reports: No Symptoms Musculoskeletal: Reports: No Symptoms Skin: Reports: No Symptoms Neurological: Reports: No Symptoms Psychiatric: Reports: No Symptoms - Patient Data Vitals - Most Recent: Last Vital Signs Temp 98.0 F 05/22/18 11:51 Pulse 86 05/22/18 11:51 Resp 22 H 05/22/18 11:51 BP 126/75 05/22/18 11:51 Pulse Ox 93 L 05/22/18 11:51 Weight - Most Recent: 200 lb I&O - Last 24 hours: Intake & Output 05/21/18 05/22/18 05/22/18 22:59 06:59 14:59 Intake Total 2952 100 Output Total 3900 2350 Balance -948 -6070 Lab Results - Last 24 hrs: Laboratory Results - last 24 hr 05/21/18 05/21/18 05/22/18 Range/Units 18:50 20:18 07:15 WBC 9.28 (4.0-11.0) K/uL RBC 4.11 L (4.30-5.90) M/uL Hgb 12.3 (12.0-16.0) g/dL Hct 37.2 (36.0-46.0) % MCV 90.5 (80.0-98.0) fL MCH 29.9 (27.0-32.0) pg MCHC 33.1 (31.0-37.0) g/dL RDW Std Deviation 41.3 (28.0-62.0) fl RDW Coeff of Antonio 13 (11.0-15.0) % Plt Count 185 (150-400) K/uL MPV 9.50 (7.40-12.00) fL Nucleated RBC % 0.0 /100WBC Nucleated RBCs # 0 K/uL APTT 28.9 (18.6-31.3) SEC Lactate 0.5 (0.20-2.00) mmol/L Sodium (136-145) mmol/L Potassium (3.5-5.1) mmol/L Chloride (98-107) mmol/L Carbon Dioxide (21.0-32.0) mmol/L BUN (7.0-18.0) mg/dL Creatinine (0.6-1.0) mg/dL Est Cr Clr Drug Dosing mL/min Estimated GFR (MDRD) ml/min Glucose (74-106) mg/dL Calcium (8.5-10.1) mg/dL Total Bilirubin (0.2-1.0) mg/dL AST (15-37) IU/L ALT (14-63) IU/L Alkaline Phosphatase (46-116) U/L Total Protein (6.4-8.2) g/dL Albumin (3.4-5.0) g/dL Globulin (2.0-3.5) g/dL Albumin/Globulin Ratio (1.3-2.8) 05/22/18 Range/Units 07:15 WBC (4.0-11.0) K/uL RBC (4.30-5.90) M/uL Hgb (12.0-16.0) g/dL Hct (36.0-46.0) % MCV (80.0-98.0) fL MCH (27.0-32.0) pg MCHC (31.0-37.0) g/dL RDW Std Deviation (28.0-62.0) fl RDW Coeff of Antonio (11.0-15.0) % Plt Count (150-400) K/uL MPV (7.40-12.00) fL Nucleated RBC % /100WBC Nucleated RBCs # K/uL APTT (18.6-31.3) SEC Lactate (0.20-2.00) mmol/L Sodium 139 (136-145) mmol/L Potassium 4.0 (3.5-5.1) mmol/L Chloride 106 (98-107) mmol/L Carbon Dioxide 28.4 (21.0-32.0) mmol/L BUN 5 L (7.0-18.0) mg/dL Creatinine 0.9 (0.6-1.0) mg/dL Est Cr Clr Drug Dosing 68.88 mL/min Estimated GFR (MDRD) > 60.0 ml/min Glucose 95 (74-106) mg/dL Calcium 8.5 (8.5-10.1) mg/dL Total Bilirubin 0.3 (0.2-1.0) mg/dL AST 20 (15-37) IU/L ALT 46 (14-63) IU/L Alkaline Phosphatase 71 (46-116) U/L Total Protein 6.3 L (6.4-8.2) g/dL Albumin 3.4 (3.4-5.0) g/dL Globulin 2.9 (2.0-3.5) g/dL Albumin/Globulin Ratio 1.2 L (1.3-2.8) JONATHAN Results - Last 24 hrs: Microbiology 05/18/18 13:08 Aerobic Blood Culture - Preliminary Blood - Venous NO GROWTH AFTER 4 DAYS Anaerobic Blood Culture - Final 05/18/18 12:36 Aerobic Blood Culture - Preliminary Blood - Venous - Lab Draw NO GROWTH AFTER 4 DAYS Anaerobic Blood Culture - Preliminary NO GROWTH AFTER 4 DAYS 05/22/18 05:35 Stool Occult Blood (JONATHAN) - Final Stool / Feces NEGATIVE OCCULT BLOOD Med Orders - Current: Current Medications Acetaminophen (Tylenol Extra Strength) 500 mg PO ASDIRECTED PRN PRN Reason: Pain Hydrocodone Bitart/Acetaminophen ([place] 325-7.5 Mg) 1 tab PO Q4H PRN PRN Reason: Pain Last Admin: 05/21/18 17:53 Dose: 1 tab Acidophilus/Pectin (Acidophilus/Pectin, [place]) 1 tab PO DAILY [facility] Last Admin: 05/22/18 10:00 Dose: 1 tab Enoxaparin Sodium (Lovenox) 40 mg SUBCUT Q24H [facility] Last Admin: 05/21/18 22:24 Dose: 40 mg Heparin Sodium (Porcine) (Heparin Sodium) 1,500 - 2,500 units IV ASDIRECTED PRN PRN Reason: PER HEP DRIP PROTOCOL Metronidazole 500 mg/ Premix 100 mls @ 100 mls/hr IV QID [facility] Last Admin: 05/22/18 05:34 Dose: 100 mls/hr Ciprofloxacin/Dextrose 400 mg/ (Premix) 200 mls @ 200 mls/hr IV Q12H [facility] Last Admin: 05/22/18 10:01 Dose: 200 mls/hr Dextrose/Sodium Chloride (Dextrose 5%-Normal Saline) 1,000 mls @ 150 mls/hr IV ASDIRECTED [facility] Last Admin: 05/21/18 16:08 Dose: 150 mls/hr Metoclopramide HCl (Reglan) 10 mg IVPUSH Q6H PRN PRN Reason: nausea and vomiting Last Admin: 05/19/18 17:52 Dose: 10 mg Ondansetron HCl (Zofran) 4 mg IVPUSH Q4H PRN PRN Reason: Nausea Last Admin: 05/22/18 06:43 Dose: 4 mg Pantoprazole Sodium (Protonix Iv) 40 mg IVPUSH Q24H [facility] Last Admin: 05/21/18 17:19 Dose: 40 mg Sodium Chloride (Saline Flush) 10 ml FLUSH ASDIRECTED PRN PRN Reason: Keep Vein Open Sodium Chloride (Saline Flush) 2.5 ml FLUSH ASDIRECTED PRN PRN Reason: Keep Vein Open Discontinued Medications Diphenhydramine HCl (Benadryl) 25 mg IVPUSH ONETIME ONE Stop: 05/18/18 11:46 Last Admin: 05/18/18 13:56 Dose: 25 mg Diphenhydramine HCl (Benadryl) Confirm Administered Dose 50 mg .ROUTE .STK-MED ONE Stop: 05/18/18 13:57 Last Admin: 05/18/18 14:03 Dose: Not Given Enoxaparin Sodium (Lovenox) 40 mg SUBCUT Q24H [facility] Last Admin: 05/20/18 20:21 Dose: 40 mg Heparin Sodium (Porcine) (Heparin Sodium) 5,000 units IVPUSH ONETIME ONE Stop: 05/21/18 18:46 Last Admin: 05/21/18 22:24 Dose: Not Given Hydromorphone HCl (Dilaudid) 1 mg IVPUSH Q3H PRN PRN Reason: Pain Last Admin: 05/19/18 13:14 Dose: 1 mg Sodium Chloride (Normal Saline) 1,000 mls @ 999 mls/hr IV STAT ONE Stop: 05/18/18 11:56 Last Admin: 05/18/18 11:23 Dose: 999 mls/hr Ciprofloxacin/Dextrose 400 mg/ (Premix) 200 mls @ 200 mls/hr IV NOW STA Stop: 05/18/18 13:19 Last Admin: 05/18/18 14:15 Dose: 200 mls/hr Metronidazole 500 mg/ Premix 100 mls @ 100 mls/hr IV ONETIME ONE Stop: 05/18/18 13:18 Last Admin: 05/18/18 13:02 Dose: 100 mls/hr Sodium Chloride (Normal Saline) 1,000 mls @ 125 mls/hr IV .Bolus ONE Stop: 05/18/18 20:30 Last Admin: 05/18/18 12:37 Dose: 125 mls/hr Lactated Ringer's (Ringers, Lactated) 1,000 mls @ 125 mls/hr IV ASDIRECTED [facility] Last Admin: 05/18/18 16:19 Dose: 125 mls/hr Heparin Sodium/Sodium Chloride (Heparin-1/2ns 25,000 Units/500) 25,000 unit in 500 mls @ 26 mls/hr IV TITRATE [facility]; Protocol Iopamidol (Isovue-370 (76%)) 100 ml IVPUSH ONETIME STA Stop: 05/18/18 12:12 Last Admin: 05/18/18 12:21 Dose: 100 ml Iopamidol (Isovue Multipack-370 (76%)) 100 ml IVPUSH ONETIME STA Stop: 05/21/18 19:16 Last Admin: 05/21/18 19:15 Dose: 100 ml Ketorolac Tromethamine (Toradol) 30 mg IVPUSH ONETIME ONE Stop: 05/18/18 11:27 Last Admin: 05/18/18 11:35 Dose: 30 mg Methylprednisolone Sodium Succinate (Solu-Medrol) 60 mg IVPUSH DAILY [facility] Last Admin: 05/19/18 08:01 Dose: 60 mg Morphine Sulfate (Morphine) 2 mg IVPUSH ONETIME ONE Stop: 05/18/18 11:46 Last Admin: 05/18/18 14:10 Dose: 1 mg Morphine Sulfate (Morphine) 2 mg IVPUSH ONETIME ONE Stop: 05/18/18 13:11 Last Admin: 05/18/18 14:04 Dose: Not Given Morphine Sulfate (Morphine) Confirm Administered Dose 2 mg .ROUTE .STK-MED ONE Stop: 05/18/18 13:54 Last Admin: 05/18/18 14:04 Dose: Not Given Morphine Sulfate (Morphine) 2 mg IVPUSH Q2H PRN PRN Reason: Pain (severe 7-10) Stop: 05/19/18 14:55 Last Admin: 05/18/18 16:34 Dose: 2 mg Ondansetron HCl (Zofran) 4 mg IVPUSH ONETIME ONE Stop: 05/18/18 10:57 Last Admin: 05/18/18 11:23 Dose: 4 mg Potassium Chloride (Klor-Con M20) 40 meq PO ONETIME ONE Stop: 05/21/18 08:49 Last Admin: 05/21/18 09:32 Dose: 40 meq Potassium Chloride (Klor-Con M20) 40 meq PO ONETIME ONE Stop: 05/21/18 17:09 Last Admin: 05/21/18 17:50 Dose: 40 meq - Exam General: Reports: Alert, Oriented HEENT: Reports: Pupils Equal, Pupils Reactive Neck: Reports: Supple, Trachea Midline, No JVD, No Thyromegaly Lungs: Reports: Clear to Auscultation, Normal Respiratory Effort Cardiovascular: Reports: Regular Rate, Regular Rhythm, No Murmurs GI/Abdominal Exam: Normal Bowel Sounds, Soft, Non-Tender, No Organomegaly, No Distention Back Exam: Reports: Normal Inspection Extremities: Normal Inspection Skin: Reports: Warm, Dry Neurological: Reports: No New Focal Deficit Psy/Mental Status: Reports: Alert, Normal Affect
--- NOTE | 2018-05-22 14:45 | CT ---
EXAM DATE: 05/18/18 PATIENT'S AGE: 42 Patient: KEN JORDAN Facility: [place], [place] Site . Site : [id number] Study: CT Abdomen/Pelvis [id number]/19/2018 7:17:47 PM Ordering Physician: David Salazar Final Report: HISTORY: Ischemic colitis. TECHNIQUE: Initial noncontrast CT abdomen and pelvis followed by intravenous contrast enhanced CT of the abdomen pelvis. 100 mL of Isovue-370 intravenous contrast administered. COMPARISON: 05/18/2018. FINDINGS: There is no focal liver parenchymal abnormality. Gallbladder appears mildly distended. Possible subtle gallbladder wall edema and/or thickening. Gallbladder would be more optimally evaluated with ultrasound. There is no biliary ductal dilatation. Gallbladder does not appear overly distended. Adrenal glands are normal. No focal pancreatic abnormality or acute peripancreatic inflammatory change. Symmetric nephrograms. There is no renal mass. No hydronephrosis or obstructive urinary calculus. Urinary bladder is contracted. - No dilated small bowel loops. Colonic diverticulosis without acute diverticulitis. The ascending colonic wall in places may be mildly thickened though it is not optimally distended. Elsewhere, the colonic wall does not appear thickened. This represents overall improvement from the prior CT. Some prominent lymph nodes adjacent the cecum as before could be reactive. Prior hysterectomy. Trace pelvic free fluid. - No abdominal aortic aneurysm. The mesenteric and renal arterial vasculature appears patent. - New small bilateral pleural effusions with mild posterior costophrenic angle atelectasis. IMPRESSION: 1. Though not optimally distended, the proximal colonic wall is likely residually mildly thickened suggesting residual colitis. Elsewhere, the colonic wall does not appear thickened. This represents overall improvement from the prior CT. 2. Small amount of pelvic free fluid without localized collection. 3. Some prominent lymph nodes adjacent the cecum as before could be reactive. 4. Mildly distended gallbladder. Possible gallbladder wall thickening and/or edema. If the patient has clinical symptoms referable to the gallbladder, gallbladder ultrasound could be performed for further evaluation. 5. New small pleural effusions with bibasilar atelectasis. Dictated by Beau Cortes MD @ 05/21/2018 7:56:19 PM Please note that all CT scans at this facility use dose modulation, iterative reconstruction, and/or weight-based dosing when appropriate to reduce radiation dose to as low as reasonably achievable. Dictated by: Beau Cortes MD @ 05/21/2018 19:56:35 (Electronic Signature) Report Signed by Proxy. [facility]
--- NOTE | 2018-05-22 17:29 | US ---
EXAM DATE: 05/18/18 PATIENT'S AGE: 42 Patient: KEN JORDAN Facility: [place], [place] Site . Site : 1975 Study: US Abdomen [id number]/20/2018 9:37:08 AM Ordering Physician: David Salazar Final Report: INDICATION: History of ischemic colitis. The gallbladder wall thickening on recent CT. FINDINGS: The visualized liver echotexture is within normal limits. No large masses are noted. No intrahepatic biliary dilatation is seen. The gallbladder is fluid filled, no shadowing gallstones are noted. Focal area of gallbladder wall thickening is identified interposed between the liver and the gallbladder measuring up to 6 mm. There is no biliary dilatation with common bile duct of approximately 5 mm. No free fluid is seen. The right kidney is 12.1 cm in length and there is no hydronephrosis. IMPRESSION: Focal area of gallbladder wall thickening is identified up to 6 mm. No shadowing gallstones are noted. No significant pericholecystic fluid is seen. Common bile duct is within normal limits at approximate 5 mm. Dictated by Julian Morris MD @ 05/22/2018 10:19:39 AM Dictated by: Julian Morris MD @ 05/22/2018 10:19:45 (Electronic Signature) MTDD
== END 2018-05-22 15:43 | disposition home or self-care (01) | DRG 246 ==
LOC: MW.ED 10:54 → MW.MS 13:22
PROVIDERS: ADMIT Internal Medicine; ATTEND Internal Medicine
DX: K55.9 Vascular disorder of intestine, unspecified (principal); D68.59 Other primary thrombophilia; R76.0 Raised antibody titer; Z79.899 Other long term (current) drug therapy; Z87.891 Personal history of nicotine dependence
CPT/HCPCS: 36415; 74177; 74177-26; 74178; 74178-26; 76705; 76705-26; 80053; 81001; 82150; 82272; 83605; 83630; 83690; 85025; 85027; 85652; 85730; 86140; 87040; 87046; 87324; 87899; 96361; 96365; 96375; 99285-25; A9270-GY; C9113; J0744; J1170; J1200; J1650; J1885; J2270; J2405; J2765; J2930; J3490; J7040; J7042; J7120; Q9967

== ENCOUNTER 2023-03-10 07:24 | Day surgery (SDC) | payer BC, OTHER ==
[~2023-03-10 07:24] MED LIST: Lactated Ringers 1,000 ML IV SCH; Sodium Chloride 0.9% 10 ML Syringe FLUSH PRN; Sodium Chloride 0.9% 2.5 ML Syringe FLUSH PRN; Sodium Chloride 0.9% 20 ML SDV IV PRN
[2023-03-10] MEDS ORDERED: Propofol 200 MG/20 ML SDV ONE ×2 (08:01→08:30)
[2023-03-10] MEDS ORDERED: Magnesium Sulfate (4.06 MEQ/ML) 5 GM/10 ML SDV ONE (08:43)
[2023-03-10 12:48] VITALS: BP 96/51; PULSE 61
== END 2023-03-10 09:30 | disposition home or self-care (01) ==
LOC: MW.SDS 07:24
PROVIDERS: ATTEND Surgery
DX: D12.3 Benign neoplasm of transverse colon (principal); D12.5 Benign neoplasm of sigmoid colon; K63.5 Polyp of colon; K62.1 Rectal polyp; K52.9 Noninfective gastroenteritis and colitis, unspecified; R93.2 Abnormal findings on diagnostic imaging of liver and biliary tract; R19.4 Change in bowel habit; D68.9 Coagulation defect, unspecified; H26.9 Unspecified cataract; G93.5 Compression of brain; R74.01 Elevation of levels of liver transaminase levels; G47.30 Sleep apnea, unspecified; G56.03 Carpal tunnel syndrome, bilateral upper limbs; E55.9 Vitamin D deficiency, unspecified; E66.9 Obesity, unspecified; Z68.41 Body mass index [BMI] 40.0-44.9, adult; F17.210 Nicotine dependence, cigarettes, uncomplicated; Z79.890 Hormone replacement therapy; Z79.899 Other long term (current) drug therapy; Z90.49 Acquired absence of other specified parts of digestive tract; Z90.89 Acquired absence of other organs; Z90.710 Acquired absence of both cervix and uterus; Z87.59 Personal history of other complications of pregnancy, childbirth and the puerperium
CPT/HCPCS: 45380; J2704; J3475; J7120